=== PATIENT | male | born 1945 | race Two or more races ===

== ENCOUNTER 2016-12-19 08:45 | Outpatient (CLI) | payer MEDICARE, MEDICAID ==
[2016-12-20] MEDS ORDERED: GLIP5TAB13 PO (13:59)
[2016-12-20] MEDS ORDERED: METF10002 PO (13:59)
[2016-12-20] MEDS ORDERED: OXYC-162 PO (13:59)
[2016-12-20] MEDS ORDERED: IBUP-1955 PO (13:59)
[2016-12-20] MEDS ORDERED: METO5TAB2 PO (13:59)
[2016-12-20] MEDS ORDERED: FAMO20TA8 PO (13:59)
[2016-12-20] MEDS ORDERED: BENA40TA2 PO (13:59)
[2016-12-20] MEDS ORDERED: CHLO25TA2 PO (13:59)
[2016-12-20] MEDS ORDERED: AMLO10TA2 PO (13:59)
[2016-12-20] MEDS ORDERED: ATOR40TA PO (13:59)
[2016-12-20] MEDS ORDERED: ASPI81TA2 PO (13:59)
== END 2016-12-19 23:59 | disposition home health service (06) ==
LOC: WOU 08:45
PROVIDERS: ATTEND Podiatrist Foot & Ankle Surgery
DX: E11.621 Type 2 diabetes mellitus with foot ulcer (principal); L97.513 Non-pressure chronic ulcer of other part of right foot with necrosis of muscle; E11.69 Type 2 diabetes mellitus with other specified complication; M86.671 Other chronic osteomyelitis, right ankle and foot; E11.42 Type 2 diabetes mellitus with diabetic polyneuropathy; L60.3 Nail dystrophy; L60.0 Ingrowing nail; B35.1 Tinea unguium; Z87.891 Personal history of nicotine dependence; I10 Essential (primary) hypertension; Z89.421 Acquired absence of other right toe(s); Z79.84 Long term (current) use of oral hypoglycemic drugs
CPT/HCPCS: 11043; 11730; 87070; 87075; A6402; 87186-TC

== ENCOUNTER 2016-12-20 10:20 | Outpatient (CLI) | payer MEDICARE, MEDICAID ==
[2016-12-20] MEDS ORDERED: OXYC-162 PO (13:59)
[2016-12-20] MEDS ORDERED: CHLO25TA2 PO (13:59)
[2016-12-20] MEDS ORDERED: GLIP5TAB13 PO (13:59)
[2016-12-20] MEDS ORDERED: IBUP-1955 PO (13:59)
[2016-12-20] MEDS ORDERED: ATOR40TA PO (13:59)
[2016-12-20] MEDS ORDERED: METO5TAB2 PO (13:59)
[2016-12-20] MEDS ORDERED: AMLO10TA2 PO (13:59)
[2016-12-20] MEDS ORDERED: FAMO20TA8 PO (13:59)
[2016-12-20] MEDS ORDERED: METF10002 PO (13:59)
[2016-12-20] MEDS ORDERED: BENA40TA2 PO (13:59)
[2016-12-20] MEDS ORDERED: ASPI81TA2 PO (13:59)
== END 2016-12-20 23:59 | disposition home health service (06) ==
LOC: WOU 10:20
PROVIDERS: ATTEND Specialist
DX: E11.621 Type 2 diabetes mellitus with foot ulcer (principal); L97.414 Non-pressure chronic ulcer of right heel and midfoot with necrosis of bone; L97.512 Non-pressure chronic ulcer of other part of right foot with fat layer exposed; E11.42 Type 2 diabetes mellitus with diabetic polyneuropathy; E11.69 Type 2 diabetes mellitus with other specified complication; M86.671 Other chronic osteomyelitis, right ankle and foot; E11.649 Type 2 diabetes mellitus with hypoglycemia without coma; Z79.4 Long term (current) use of insulin; I10 Essential (primary) hypertension; Z79.899 Other long term (current) drug therapy; Z87.891 Personal history of nicotine dependence
CPT/HCPCS: 82962-TC; A6402; G0463

== ENCOUNTER 2016-12-20 12:44 | Inpatient (IN) | payer MEDICARE, MEDICAID ==
[~2016-12-20] VITALS: Ht 172.7 cm; Wt 77.1 kg
[2016-12-20] MEDS ORDERED: DEXTROSE 50%-WATER 50 ML DISP.SYRIN ONE (12:48)
[2016-12-20] MEDS ORDERED: DEXTROSE 50%-WATER 50 ML DISP.SYRIN IVP ONE (13:00)
[2016-12-20] MEDS ORDERED: IV D5/0.45 NACL 1,000 ML IV ONE ×2 (13:00→13:09)
[2016-12-20] MEDS ORDERED: OCTREOTIDE 50 MCG/ML AMPUL SQ ONE (13:00)
[2016-12-20] MEDS ORDERED: IV SET PRIMARY PUMP SET 1 EA INFUS.SET MC ONE ×2 (13:09→14:17)
[2016-12-20] MEDS ORDERED: OCTREOTIDE 100 MCG/ML VIAL ONE (13:10)
[2016-12-20 13:16] LABS: BASOPHILS % (AUTO) 0.3 % (0.0-2.0); DIFF TOTAL % 100 %; EOSINOPHILS # (AUTO) 0.2 /CMM (0.0-0.7); EOSINOPHILS % (AUTO) 2.3 % (0.0-6.0); HEMATOCRIT 29 % (39-51); HEMOGLOBIN 9.8 g/dL (13.5-17.5); LYMPHOCYTES # (AUTO) 2.7 /CMM (0.8-4.8); LYMPHOCYTES % (AUTO) 30.3 % (20.0-44.0); MEAN CORPUSCULAR HEMOGLOBIN 29 PG (26.0-33.0); MEAN CORPUSCULAR HGB CONC 34 g/dl (31.0-36.0); MEAN CORPUSCULAR VOLUME 86 fL (80-96); MONOCYTES # (AUTO) 0.5 /CMM (0.1-1.30); MONOCYTES % (AUTO) 5.5 % (2.0-12.0); NEUTROPHILS # (AUTO) 5.6 /CMM (1.8-8.9); NEUTROPHILS % (AUTO) 61.6 % (43.0-81.0); PLATELET COUNT (AUTO) 318 /CMM (150-450); RED BLOOD CELL COUNT(AUTO) 3.39 MIL/uL (4.5-6.0)
[2016-12-20 13:25] LABS: ANION GAP 15 (5-14); CARBON DIOXIDE 24 mmol/L (21-32); CHLORIDE 103 mmol/L (98-107); CREATININE 1.6 mg/dL (0.6-1.3); GLUCOSE 149 mg/dL (74-106); SODIUM SERUM 138 mmol/L (136-145); UREA NITROGEN, BLOOD 46 mg/dL (7-18)
[2016-12-20] MEDS ORDERED: PIPERACILLIN /TAZOBACTAM 3.375 G in IV D5W 50 ML IV ONE (13:30)
[2016-12-20] MEDS ORDERED: VANCOMYCIN 1 GM in IV D5W 250 ML IV SCH (13:30)
[2016-12-20] MEDS ORDERED: SILVER SULFADIAZINE CREAM 25 GM TUBE TP ONE (13:30)
[2016-12-20 13:33] LABS: TROPONIN I < 0.017 ng/mL (0.00-0.056)
[2016-12-20] MEDS ORDERED: ATOR40TA PO (13:59)
[2016-12-20] MEDS ORDERED: ASPI81TA2 PO (13:59)
[2016-12-20] MEDS ORDERED: METF10002 PO (13:59)
[2016-12-20] MEDS ORDERED: GLIP5TAB13 PO (13:59)
[2016-12-20] MEDS ORDERED: IBUP-1955 PO (13:59)
[2016-12-20] MEDS ORDERED: AMLO10TA2 PO (13:59)
[2016-12-20] MEDS ORDERED: BENA40TA2 PO (13:59)
[2016-12-20] MEDS ORDERED: FAMO20TA8 PO (13:59)
[2016-12-20] MEDS ORDERED: CHLO25TA2 PO (13:59)
[2016-12-20] MEDS ORDERED: METO5TAB2 PO (13:59)
[2016-12-20] MEDS ORDERED: OXYC-162 PO (13:59)
[2016-12-20] MEDS ORDERED: ACETAMINOPHEN 325 MG TABLET PO PRN (14:30)
[2016-12-20] MEDS ORDERED: HYDROCODONE/APAP 5/325MG 1 EACH TABLET PO PRN (14:30)
[2016-12-20] MEDS ORDERED: MORPHINE SULFATE INJ 2 MG/ML DISP.SYRIN IV PRN (14:30)
[2016-12-20] MEDS ORDERED: ACETAMINOPHEN 650 MG/20.3 ML UDC NG PRN (14:30)
[2016-12-20] MEDS ORDERED: ONDANSETRON HCL/PF 4 MG/2 ML VIAL IVP PRN ×2 (14:30)
[2016-12-20] MEDS ORDERED: MAG HYDROX/AL HYDROX/SIMETH 30 ML UDC PO PRN (14:30)
[2016-12-20] MEDS ORDERED: Z GUARD REMEDY 2 OZ OINT TP PRN (14:30)
[2016-12-20] MEDS ORDERED: VANCOMYCIN 1 GM in IV D5W 250 ML IV ONE (14:30)
[2016-12-20] MEDS ORDERED: IV NS 0.9% 1,000 ML BAG IV ONE (14:30)
[2016-12-20] MEDS ORDERED: DEXTROSE 10% IN WATER 250 ML BAG IV ONE (14:30)
[2016-12-20 15:20] LABS: IRON, SERUM 42 ug/dl (50-175); PERCENT SATURATION 17 % (14-33); TOTAL IRON BINDING CAPACITY 253 ug/dl (250-450)
[2016-12-20 15:30] VITALS: BP 117/69
[2016-12-20] MEDS ORDERED: METOCLOPRAMIDE HCL 10 MG TABLET PO PRN (15:30)
[2016-12-20 16:00] VITALS: BP 149/72
[2016-12-20] MEDS ORDERED: FEE PK DOSING 1 MIN EA MC ONE (16:24)
[2016-12-20 16:29] LABS: CREATININE 1.5 mg/dL (0.6-1.3); POTASSIUM 4.5 mmol/L (3.5-5.1)
[2016-12-20] MEDS ORDERED: DEXTROSE 50%-WATER 50 ML DISP.SYRIN IV PRN (18:30)
[2016-12-20] MEDS ORDERED: SECONDARY IV SET 1 EA INFUS.SET MC ONE (18:31)
[2016-12-20] MEDS: MEROPENEM 1 G in IV NS 0.9% 100 ML IV SCH (18:36)
[2016-12-20] MEDS: IV D5/ 0.9% NACL 1,000 ML IV PRN (18:36)
[2016-12-20] MEDS: BLOOD SUGAR DIAGNOSTIC 1 EACH STRIP IN SCH ×2 (18:37→22:17)
[2016-12-20 20:00] VITALS: BP 114/62
[2016-12-20 20:50] LABS: KETONES,URINE NEGATIVE (NEGATIVE); LEUKOCYTE ESTERASE ,URINE NEGATIVE (NEGATIVE)
[2016-12-20] MEDS ORDERED: MEROPENEM 1 G in IV NS 0.9% 100 ML IV SCH (21:00)
[2016-12-20 21:08] LABS: ADD UA MICROSCOPIC YES
[2016-12-20 21:11] LABS: ADD URINE CULTURE NO; WBC,URINE 0-2 /HPF (0-3)
[2016-12-20] MEDS ORDERED: MAGNESIUM HYDROXIDE 30 ML UDC PO PRN (22:00)
[2016-12-20] MEDS ORDERED: ZOLPIDEM TARTRATE 5 MG TABLET PO PRN (22:00)
[2016-12-21] VITALS (7 sets, daily range): BP systolic 105–130; BP diastolic 52–130
[2016-12-21] MEDS: MEROPENEM 1 G in IV NS 0.9% 100 ML IV SCH ×2 (03:35→15:46)
[2016-12-21] MEDS: IV D5/ 0.9% NACL 1,000 ML IV PRN ×2 (03:35→21:12)
[2016-12-21] MEDS: BLOOD SUGAR DIAGNOSTIC 1 EACH STRIP IN SCH ×5 (05:52→22:00)
[2016-12-21 07:06] LABS: BASOPHILS # (AUTO) 0.1 /CMM (0.0-0.2); BASOPHILS % (AUTO) 0.8 % (0.0-2.0); DIFF TOTAL % 100 %; EOSINOPHILS # (AUTO) 0.2 /CMM (0.0-0.7); EOSINOPHILS % (AUTO) 2.8 % (0.0-6.0); HEMATOCRIT 30 % (39-51); HEMOGLOBIN 9.9 g/dL (13.5-17.5); LYMPHOCYTES # (AUTO) 0.3 /CMM (0.8-4.8); LYMPHOCYTES % (AUTO) 4.2 % (20.0-44.0); MEAN CORPUSCULAR HEMOGLOBIN 29 PG (26.0-33.0); MEAN CORPUSCULAR HGB CONC 33 g/dl (31.0-36.0); MEAN CORPUSCULAR VOLUME 87 fL (80-96); MONOCYTES # (AUTO) 0.3 /CMM (0.1-1.30); MONOCYTES % (AUTO) 4.4 % (2.0-12.0); NEUTROPHILS # (AUTO) 6.8 /CMM (1.8-8.9); NEUTROPHILS % (AUTO) 87.8 % (43.0-81.0); PLATELET COUNT (AUTO) 277 /CMM (150-450); RED BLOOD CELL COUNT(AUTO) 3.43 MIL/uL (4.5-6.0); WHITE BLOOD COUNT (AUTO) 7.8 K/uL (4.3-11.0)
[2016-12-21 07:23] LABS: INR 1.11 (0.87-1.13)
[2016-12-21 07:27] LABS: ALBUMIN 3.2 g/dL (3.4-5.0); BILIRUBIN,TOTAL 0.4 mg/dL (0.2-1.0); CALCIUM, SERUM 8.6 mg/dL (8.5-10.1); CREATININE 1.2 mg/dL (0.6-1.3); POTASSIUM 4.4 mmol/L (3.5-5.1); TOTAL PROTEIN, SERUM 6.9 g/dL (6.4-8.2)
[2016-12-21] MEDS ORDERED: PANTOPRAZOLE 40 MG TABLET.DR PO SCH (07:30)
[2016-12-21 07:31] LABS: THYROID STIMULATING HORMONE 0.624 uIU/mL (0.358-3.74)
[2016-12-21] MEDS: PANTOPRAZOLE 40 MG VIAL IV SCH (08:25)
[2016-12-21] MEDS: ASPIRIN 81 MG TAB.CHEW PO SCH (08:25)
[2016-12-21] MEDS: ATORVASTATIN 40 MG TABLET PO SCH (08:28)
[2016-12-21] MEDS: AMLODIPINE BESYLATE 10 MG TABLET PO SCH (08:29)
[2016-12-21] MEDS: BENAZEPRIL HCL 20 MG TABLET PO SCH (08:29)
[2016-12-21] MEDS ORDERED: VANCOMYCIN 1 GM in IV D5W 250 ML IV SCH (09:00)
[2016-12-21] MEDS ORDERED: SECONDARY IV SET 1 EA INFUS.SET MC ONE (09:25)
[2016-12-21] MEDS ORDERED: DEXTROSE 50%-WATER 50 ML DISP.SYRIN IV PRN (11:00)
[2016-12-21] MEDS: SILVER SULFADIAZINE CREAM 25 GM TUBE TP SCH (12:35)
[2016-12-21] MEDS: INSULIN REGULAR, HUMAN 100 UNIT/ML 3 ML VIAL SQ PRN ×2 (14:07→21:40)
[2016-12-21] MEDS: VANCOMYCIN 0.75 GM in IV D5W 250 ML IV SCH (21:12)
[2016-12-22] MEDS: MEROPENEM 1 G in IV NS 0.9% 100 ML IV SCH ×2 (03:59→15:44)
[2016-12-22] MEDS: INSULIN REGULAR, HUMAN 100 UNIT/ML 3 ML VIAL SQ PRN ×4 (06:36→21:52)
[2016-12-22] MEDS: BLOOD SUGAR DIAGNOSTIC 1 EACH STRIP IN SCH ×4 (07:30→22:09)
[2016-12-22 07:40] LABS: BASOPHILS # (AUTO) 0.1 /CMM (0.0-0.2); BASOPHILS % (AUTO) 1.8 % (0.0-2.0); DIFF TOTAL % 100 %; EOSINOPHILS # (AUTO) 0.4 /CMM (0.0-0.7); EOSINOPHILS % (AUTO) 7.3 % (0.0-6.0); HEMATOCRIT 29 % (39-51); HEMOGLOBIN 9.6 g/dL (13.5-17.5); LYMPHOCYTES # (AUTO) 1.5 /CMM (0.8-4.8); LYMPHOCYTES % (AUTO) 28.6 % (20.0-44.0); MEAN CORPUSCULAR HEMOGLOBIN 29 PG (26.0-33.0); MEAN CORPUSCULAR HGB CONC 34 g/dl (31.0-36.0); MEAN CORPUSCULAR VOLUME 86 fL (80-96); MONOCYTES # (AUTO) 0.3 /CMM (0.1-1.30); NEUTROPHILS # (AUTO) 2.9 /CMM (1.8-8.9); NEUTROPHILS % (AUTO) 56.3 % (43.0-81.0); PLATELET COUNT (AUTO) 268 /CMM (150-450); RED BLOOD CELL COUNT(AUTO) 3.33 MIL/uL (4.5-6.0); WHITE BLOOD COUNT (AUTO) 5.2 K/uL (4.3-11.0)
[2016-12-22 07:54] LABS: CALCIUM, SERUM 8.3 mg/dL (8.5-10.1); CREATININE 1.1 mg/dL (0.6-1.3); PHOSPHORUS 3.4 mg/dL (2.5-4.9); POTASSIUM 4.2 mmol/L (3.5-5.1)
[2016-12-22 08:00] VITALS: BP 126/60
[2016-12-22] MEDS: PANTOPRAZOLE 40 MG VIAL IV SCH (08:25)
[2016-12-22] MEDS: ASPIRIN 81 MG TAB.CHEW PO SCH (08:25)
[2016-12-22] MEDS: ATORVASTATIN 40 MG TABLET PO SCH (08:26)
[2016-12-22] MEDS: AMLODIPINE BESYLATE 10 MG TABLET PO SCH (08:26)
[2016-12-22] MEDS: BENAZEPRIL HCL 20 MG TABLET PO SCH (08:26)
[2016-12-22] MEDS: VANCOMYCIN 0.75 GM in IV D5W 250 ML IV SCH ×2 (08:39→21:45)
[2016-12-22] MEDS: SILVER SULFADIAZINE CREAM 25 GM TUBE TP SCH (08:39)
[2016-12-22] MEDS ORDERED: SECONDARY IV SET 1 EA INFUS.SET MC ONE ×2 (08:40→19:11)
[2016-12-22] MEDS: Magnesium 1GM/D5W 100ML PREMIX 100 ML IV SCH ×2 (12:36→13:40)
[2016-12-22] MEDS ORDERED: Magnesium 1GM/D5W 100ML PREMIX 100 ML IV SCH (13:30)
[2016-12-22 13:45] LABS: INR 1.07 (0.87-1.13); PROTHROMBIN TIME 11.6 SECS (9.5-12.7)
[2016-12-22] MEDS: IV D5/ 0.9% NACL 1,000 ML IV PRN (14:59)
[2016-12-22 16:00] VITALS: BP 123/59
[2016-12-22 19:00] VITALS: BP 111/52
[2016-12-22] MEDS: CEFTRIAXONE 1 G in IV D5W 50 ML IV SCH (19:13)
[2016-12-23] MEDS: IV D5/ 0.9% NACL 1,000 ML IV PRN ×2 (04:21→18:51)
[2016-12-23] MEDS: BLOOD SUGAR DIAGNOSTIC 1 EACH STRIP IN SCH ×4 (05:25→21:31)
[2016-12-23] MEDS: INSULIN REGULAR, HUMAN 100 UNIT/ML 3 ML VIAL SQ PRN ×4 (06:29→21:39)
[2016-12-23 06:32] LABS: BASOPHILS # (AUTO) 0.1 /CMM (0.0-0.2); BASOPHILS % (AUTO) 1.7 % (0.0-2.0); DIFF TOTAL % 100 %; EOSINOPHILS # (AUTO) 0.3 /CMM (0.0-0.7); EOSINOPHILS % (AUTO) 5.8 % (0.0-6.0); HEMATOCRIT 28 % (39-51); HEMOGLOBIN 9.4 g/dL (13.5-17.5); LYMPHOCYTES # (AUTO) 1.7 /CMM (0.8-4.8); LYMPHOCYTES % (AUTO) 34.7 % (20.0-44.0); MEAN CORPUSCULAR HEMOGLOBIN 29 PG (26.0-33.0); MEAN CORPUSCULAR HGB CONC 34 g/dl (31.0-36.0); MEAN CORPUSCULAR VOLUME 85 fL (80-96); MONOCYTES # (AUTO) 0.3 /CMM (0.1-1.30); MONOCYTES % (AUTO) 6.5 % (2.0-12.0); NEUTROPHILS # (AUTO) 2.5 /CMM (1.8-8.9); NEUTROPHILS % (AUTO) 51.3 % (43.0-81.0); PLATELET COUNT (AUTO) 277 /CMM (150-450); RED BLOOD CELL COUNT(AUTO) 3.29 MIL/uL (4.5-6.0); WHITE BLOOD COUNT (AUTO) 4.9 K/uL (4.3-11.0)
[2016-12-23 06:59] LABS: CALCIUM, SERUM 8.3 mg/dL (8.5-10.1); POTASSIUM 4.4 mmol/L (3.5-5.1)
[2016-12-23 08:00] VITALS: BP 125/64
[2016-12-23] MEDS: VANCOMYCIN 0.75 GM in IV D5W 250 ML IV SCH ×2 (09:11→21:31)
[2016-12-23] MEDS: AMLODIPINE BESYLATE 10 MG TABLET PO SCH (09:11)
[2016-12-23] MEDS: ASPIRIN 81 MG TAB.CHEW PO SCH (09:12)
[2016-12-23] MEDS: ATORVASTATIN 40 MG TABLET PO SCH (09:12)
[2016-12-23] MEDS: BENAZEPRIL HCL 20 MG TABLET PO SCH (09:12)
[2016-12-23] MEDS: PANTOPRAZOLE 40 MG VIAL IV SCH (09:13)
[2016-12-23] MEDS: SILVER SULFADIAZINE CREAM 25 GM TUBE TP SCH (09:13)
[2016-12-23] MEDS: ENOXAPARIN SODIUM 40 MG/0.4 ML DISP.SYRIN SQ SCH (11:23)
[2016-12-23 16:00] VITALS: BP 123/66
[2016-12-23] MEDS: LACTOBACILLUS RHAMNOSUS GG 1 EACH CAP.SPRINK PO SCH (18:01)
[2016-12-23] MEDS: CEFTRIAXONE 1 G in IV D5W 50 ML IV SCH (18:51)
[2016-12-23 20:00] VITALS: BP 110/62
[2016-12-24 07:03] LABS: CALCIUM, SERUM 8.4 mg/dL (8.5-10.1); POTASSIUM 4.2 mmol/L (3.5-5.1)
[2016-12-24] MEDS: BLOOD SUGAR DIAGNOSTIC 1 EACH STRIP IN SCH ×4 (07:30→21:36)
[2016-12-24] MEDS: INSULIN REGULAR, HUMAN 100 UNIT/ML 3 ML VIAL SQ PRN ×3 (07:42→21:39)
[2016-12-24 08:00] VITALS: BP 133/70
[2016-12-24] MEDS: IV D5/ 0.9% NACL 1,000 ML IV PRN (08:16)
[2016-12-24] MEDS: PANTOPRAZOLE 40 MG VIAL IV SCH (08:16)
[2016-12-24] MEDS: ASPIRIN 81 MG TAB.CHEW PO SCH (08:16)
[2016-12-24] MEDS: ATORVASTATIN 40 MG TABLET PO SCH (08:16)
[2016-12-24] MEDS: LACTOBACILLUS RHAMNOSUS GG 1 EACH CAP.SPRINK PO SCH ×2 (08:16→16:21)
[2016-12-24] MEDS: BENAZEPRIL HCL 20 MG TABLET PO SCH (08:17)
[2016-12-24] MEDS: AMLODIPINE BESYLATE 10 MG TABLET PO SCH (08:17)
[2016-12-24] MEDS: SILVER SULFADIAZINE CREAM 25 GM TUBE TP SCH (08:23)
[2016-12-24] MEDS: VANCOMYCIN 0.75 GM in IV D5W 250 ML IV SCH ×2 (08:51→21:31)
[2016-12-24] MEDS: ENOXAPARIN SODIUM 40 MG/0.4 ML DISP.SYRIN SQ SCH (10:47)
[2016-12-24] MEDS ORDERED: IV NS 0.9% 250 ML IV ONE (14:35)
[2016-12-24 16:00] VITALS: BP 117/64
[2016-12-24] MEDS ORDERED: IV SET PRIMARY PUMP SET 1 EA INFUS.SET MC ONE (17:02)
[2016-12-24] MEDS ORDERED: SECONDARY IV SET 1 EA INFUS.SET MC ONE ×2 (17:03→21:41)
[2016-12-24] MEDS: CEFTRIAXONE 1 G in IV D5W 50 ML IV SCH (18:09)
[2016-12-24 20:00] VITALS: BP 119/64
[2016-12-25] MEDS: BLOOD SUGAR DIAGNOSTIC 1 EACH STRIP IN SCH ×3 (06:29→17:00)
[2016-12-25] MEDS: INSULIN REGULAR, HUMAN 100 UNIT/ML 3 ML VIAL SQ PRN ×3 (06:30→17:03)
[2016-12-25 07:00] LABS: CALCIUM, SERUM 8.7 mg/dL (8.5-10.1); POTASSIUM 4.1 mmol/L (3.5-5.1)
[2016-12-25 08:00] VITALS: BP 128/65
[2016-12-25] MEDS: PANTOPRAZOLE 40 MG VIAL IV SCH (08:13)
[2016-12-25] MEDS: VANCOMYCIN 0.75 GM in IV D5W 250 ML IV SCH (08:14)
[2016-12-25] MEDS: ASPIRIN 81 MG TAB.CHEW PO SCH (08:41)
[2016-12-25] MEDS: LACTOBACILLUS RHAMNOSUS GG 1 EACH CAP.SPRINK PO SCH ×2 (08:41→17:02)
[2016-12-25] MEDS: AMLODIPINE BESYLATE 10 MG TABLET PO SCH (08:41)
[2016-12-25] MEDS: ATORVASTATIN 40 MG TABLET PO SCH (08:41)
[2016-12-25] MEDS: SILVER SULFADIAZINE CREAM 25 GM TUBE TP SCH (08:47)
[2016-12-25] MEDS: BENAZEPRIL HCL 20 MG TABLET PO SCH (08:47)
[2016-12-25] MEDS: ENOXAPARIN SODIUM 40 MG/0.4 ML DISP.SYRIN SQ SCH (10:17)
[2016-12-25 16:00] VITALS: BP 127/59
== END 2016-12-25 18:18 | disposition home or self-care (01) | DRG 853 ==
LOC: ER 12:46 → TELE 15:02 → UNDOADMIN 15:02 → WOUND3 15:02 → TELE 20:33 → MED 12-21 11:49
PROVIDERS: ADMIT Internal Medicine; ATTEND Internal Medicine
PROC: 0JBQ0ZZ Excision of Right Foot Subcutaneous Tissue and Fascia, Open Approach (ICD-10-PCS; principal; 2016-12-24)
DX: A41.9 Sepsis, unspecified organism (principal); N17.0 Acute kidney failure with tubular necrosis; M86.8X6 Other osteomyelitis, lower leg; L03.90 Cellulitis, unspecified; E11.649 Type 2 diabetes mellitus with hypoglycemia without coma; E11.22 Type 2 diabetes mellitus with diabetic chronic kidney disease; I12.9 Hypertensive chronic kidney disease with stage 1 through stage 4 chronic kidney disease, or unspecified chronic kidney disease; N18.3 Chronic kidney disease, stage 3 (moderate); E11.621 Type 2 diabetes mellitus with foot ulcer; L97.519 Non-pressure chronic ulcer of other part of right foot with unspecified severity; T38.3X5A Adverse effect of insulin and oral hypoglycemic [antidiabetic] drugs, initial encounter; Y92.009 Unspecified place in unspecified non-institutional (private) residence as the place of occurrence of the external cause; E11.42 Type 2 diabetes mellitus with diabetic polyneuropathy; E11.51 Type 2 diabetes mellitus with diabetic peripheral angiopathy without gangrene; E11.69 Type 2 diabetes mellitus with other specified complication; Z79.84 Long term (current) use of oral hypoglycemic drugs; Z79.82 Long term (current) use of aspirin; Z79.899 Other long term (current) drug therapy; E78.5 Hyperlipidemia, unspecified; E11.65 Type 2 diabetes mellitus with hyperglycemia; D63.8 Anemia in other chronic diseases classified elsewhere; Z89.429 Acquired absence of other toe(s), unspecified side; R65.20 Severe sepsis without septic shock
CPT/HCPCS: 36415; 71010-TC; 80048-TC; 80053-TC; 80061-TC; 80202-TC; 81000-TC; 82272-TC; 82746; 82962-TC; 83540-TC; 83605-TC; 83735-TC; 84100-TC; 84443-TC; 84484-TC; 85025-TC; 85610-TC; 85730-TC; 87040-TC; 87070-TC; 87081-TC; 87086-TC; 87186-TC; 93307-TC; A4606; A6402; C9113; J0696; J1650; J1815; J2185; J2354; J2543; J3370; J3475; J3490; J7030; J7042; J7050; J7060; Z7610

== ENCOUNTER 2016-12-27 12:15 | Outpatient (CLI) | payer MEDICARE, MEDICAID ==
[~2016-12-27 12:15] MED LIST: AMLO10TA2 PO; ASPI81TA2 PO; ATOR40TA PO; BENA40TA2 PO; CHLO25TA2 PO; FAMO20TA8 PO; GLIP5TAB13 PO; IBUP-1955 PO; METF10002 PO; METO5TAB2 PO; OXYC-162 PO
== END 2016-12-27 23:59 | disposition home health service (06) ==
LOC: WOU 12:15
PROVIDERS: ATTEND Podiatrist Foot & Ankle Surgery
DX: L97.414 Non-pressure chronic ulcer of right heel and midfoot with necrosis of bone (principal); L97.514 Non-pressure chronic ulcer of other part of right foot with necrosis of bone; L08.9 Local infection of the skin and subcutaneous tissue, unspecified; E11.69 Type 2 diabetes mellitus with other specified complication; M86.671 Other chronic osteomyelitis, right ankle and foot; E11.42 Type 2 diabetes mellitus with diabetic polyneuropathy; Z89.421 Acquired absence of other right toe(s); I10 Essential (primary) hypertension; Z79.84 Long term (current) use of oral hypoglycemic drugs; Z79.899 Other long term (current) drug therapy
CPT/HCPCS: 11043; A6402

== ENCOUNTER 2017-01-02 09:00 | Outpatient (CLI) | payer MEDICARE, MEDICAID | END 2017-01-02 23:59 | disposition home or self-care (01) | LOC: WOU 09:00 | PROVIDERS: ATTEND Podiatrist Foot & Ankle Surgery | DX: E11.621 Type 2 diabetes mellitus with foot ulcer (principal) | CPT/HCPCS: 82962-TC; 93925-TC ==

== ENCOUNTER 2017-01-03 09:21 | Outpatient (CLI) | payer MEDICARE, MEDICAID ==
--- NOTE | 2017-01-05 08:25 | NUR ---
INFECTION CONTROL COMPLAIN RECEIVED FROM [facility] THAT PATIENT HAS BED BUGS. EVS NOTIFIED [employer]IS[employer]. [employer] ANISHA WILL NOTIFY PUBLIC HEALTH TO FOLLOW UP WITH THIS CASE. HOME ADDRESS AND PHONE NUMBER OF PATIENT PROVIDED TO CASE MANAGEMENT.
== END 2017-01-03 23:59 | disposition home health service (06) ==
LOC: WOU 09:21
PROVIDERS: ATTEND Podiatrist Foot & Ankle Surgery
DX: E11.621 Type 2 diabetes mellitus with foot ulcer (principal); L97.514 Non-pressure chronic ulcer of other part of right foot with necrosis of bone; L97.414 Non-pressure chronic ulcer of right heel and midfoot with necrosis of bone; E11.69 Type 2 diabetes mellitus with other specified complication; M86.671 Other chronic osteomyelitis, right ankle and foot; R60.0 Localized edema; E11.65 Type 2 diabetes mellitus with hyperglycemia; E11.42 Type 2 diabetes mellitus with diabetic polyneuropathy; Z89.421 Acquired absence of other right toe(s); H92.09 Otalgia, unspecified ear
CPT/HCPCS: 11042; 82962-TC; A6402

== ENCOUNTER 2017-01-10 08:20 | Outpatient (CLI) | payer MEDICARE, MEDICAID | END 2017-01-10 23:59 | disposition home health service (06) | LOC: WOU 08:20 | PROVIDERS: ATTEND Podiatrist Foot & Ankle Surgery | DX: E11.65 Type 2 diabetes mellitus with hyperglycemia (principal); E11.621 Type 2 diabetes mellitus with foot ulcer; L97.513 Non-pressure chronic ulcer of other part of right foot with necrosis of muscle; E11.40 Type 2 diabetes mellitus with diabetic neuropathy, unspecified; E11.69 Type 2 diabetes mellitus with other specified complication; M86.671 Other chronic osteomyelitis, right ankle and foot; H92.09 Otalgia, unspecified ear; R60.0 Localized edema; Z79.84 Long term (current) use of oral hypoglycemic drugs | CPT/HCPCS: 11043; A6402; A6407 ==

== ENCOUNTER 2017-01-23 09:15 | Outpatient (CLI) | payer MEDICARE, MEDICAID | END 2017-01-23 23:59 | disposition home health service (06) | LOC: WOU 09:15 | PROVIDERS: ATTEND Podiatrist Foot & Ankle Surgery | DX: E11.621 Type 2 diabetes mellitus with foot ulcer (principal); L97.413 Non-pressure chronic ulcer of right heel and midfoot with necrosis of muscle; E11.65 Type 2 diabetes mellitus with hyperglycemia; E11.40 Type 2 diabetes mellitus with diabetic neuropathy, unspecified; E11.69 Type 2 diabetes mellitus with other specified complication; M86.671 Other chronic osteomyelitis, right ankle and foot; R60.0 Localized edema; L03.115 Cellulitis of right lower limb; H92.09 Otalgia, unspecified ear; Z79.84 Long term (current) use of oral hypoglycemic drugs; Z79.899 Other long term (current) drug therapy | CPT/HCPCS: 11043; A6402; A6407 ==

== ENCOUNTER 2017-02-06 08:20 | Outpatient (CLI) | payer MEDICARE, MEDICAID | END 2017-02-06 23:59 | disposition home health service (06) | LOC: WOU 08:20 | PROVIDERS: ATTEND Podiatrist Foot & Ankle Surgery | DX: E11.621 Type 2 diabetes mellitus with foot ulcer (principal); L97.512 Non-pressure chronic ulcer of other part of right foot with fat layer exposed; Z79.84 Long term (current) use of oral hypoglycemic drugs; E11.42 Type 2 diabetes mellitus with diabetic polyneuropathy; I10 Essential (primary) hypertension; Z79.899 Other long term (current) drug therapy; Z89.421 Acquired absence of other right toe(s); Z87.891 Personal history of nicotine dependence; B35.1 Tinea unguium; E11.69 Type 2 diabetes mellitus with other specified complication; M86.9 Osteomyelitis, unspecified | CPT/HCPCS: 11042; A6402; A6407 ==

== ENCOUNTER 2017-02-13 08:40 | Outpatient (CLI) | payer MEDICARE, MEDICAID | END 2017-02-13 23:59 | disposition home health service (06) | LOC: WOU 08:40 | PROVIDERS: ATTEND Podiatrist Foot & Ankle Surgery | DX: E11.621 Type 2 diabetes mellitus with foot ulcer (principal); L97.412 Non-pressure chronic ulcer of right heel and midfoot with fat layer exposed; E11.42 Type 2 diabetes mellitus with diabetic polyneuropathy; E11.69 Type 2 diabetes mellitus with other specified complication; M86.671 Other chronic osteomyelitis, right ankle and foot; Z87.891 Personal history of nicotine dependence; I10 Essential (primary) hypertension; Z79.899 Other long term (current) drug therapy; Z79.84 Long term (current) use of oral hypoglycemic drugs | CPT/HCPCS: 11042; A6402 ==

== ENCOUNTER 2017-02-20 08:20 | Outpatient (CLI) | payer MEDICARE, MEDICAID | END 2017-02-20 23:59 | disposition home health service (06) | LOC: WOU 08:20 | PROVIDERS: ATTEND Podiatrist Foot & Ankle Surgery | DX: E11.621 Type 2 diabetes mellitus with foot ulcer (principal); L97.511 Non-pressure chronic ulcer of other part of right foot limited to breakdown of skin; E11.69 Type 2 diabetes mellitus with other specified complication; M86.671 Other chronic osteomyelitis, right ankle and foot; E11.40 Type 2 diabetes mellitus with diabetic neuropathy, unspecified; Z79.84 Long term (current) use of oral hypoglycemic drugs; Z89.421 Acquired absence of other right toe(s) | CPT/HCPCS: 11042; A6402 ==

== ENCOUNTER 2017-02-27 08:36 | Outpatient (CLI) | payer MEDICARE, MEDICAID | END 2017-02-27 23:59 | disposition home health service (06) | LOC: WOU 08:36 | PROVIDERS: ATTEND Podiatrist Foot & Ankle Surgery | DX: E11.621 Type 2 diabetes mellitus with foot ulcer (principal); L97.411 Non-pressure chronic ulcer of right heel and midfoot limited to breakdown of skin; I10 Essential (primary) hypertension; I87.2 Venous insufficiency (chronic) (peripheral); E11.42 Type 2 diabetes mellitus with diabetic polyneuropathy; Z89.421 Acquired absence of other right toe(s); E11.69 Type 2 diabetes mellitus with other specified complication; M86.671 Other chronic osteomyelitis, right ankle and foot; Z87.891 Personal history of nicotine dependence; Z79.84 Long term (current) use of oral hypoglycemic drugs; Z79.82 Long term (current) use of aspirin | CPT/HCPCS: 11042; A6402 ==

== ENCOUNTER 2017-03-06 08:10 | Outpatient (CLI) | payer MEDICARE, MEDICAID | END 2017-03-06 23:59 | disposition home health service (06) | LOC: WOU 08:10 | PROVIDERS: ATTEND Podiatrist Foot & Ankle Surgery | DX: E11.621 Type 2 diabetes mellitus with foot ulcer (principal); L97.411 Non-pressure chronic ulcer of right heel and midfoot limited to breakdown of skin; E11.40 Type 2 diabetes mellitus with diabetic neuropathy, unspecified; Z89.421 Acquired absence of other right toe(s); Z79.84 Long term (current) use of oral hypoglycemic drugs | CPT/HCPCS: 11042; A6402 ==

== ENCOUNTER 2017-03-13 08:00 | Outpatient (CLI) | payer MEDICARE, MEDICAID | END 2017-03-13 23:59 | disposition home health service (06) | LOC: WOU 08:00 | PROVIDERS: ATTEND Podiatrist Foot & Ankle Surgery | DX: E11.621 Type 2 diabetes mellitus with foot ulcer (principal); L97.411 Non-pressure chronic ulcer of right heel and midfoot limited to breakdown of skin; E11.40 Type 2 diabetes mellitus with diabetic neuropathy, unspecified; I10 Essential (primary) hypertension; Z89.421 Acquired absence of other right toe(s) | CPT/HCPCS: 11042; A6402 ==

== ENCOUNTER 2017-03-20 09:00 | Outpatient (CLI) | payer MEDICARE, MEDICAID | END 2017-03-20 23:59 | disposition home health service (06) | LOC: WOU 09:00 | PROVIDERS: ATTEND Podiatrist Foot & Ankle Surgery | DX: E11.621 Type 2 diabetes mellitus with foot ulcer (principal); L97.512 Non-pressure chronic ulcer of other part of right foot with fat layer exposed; E11.42 Type 2 diabetes mellitus with diabetic polyneuropathy; I10 Essential (primary) hypertension; Z79.899 Other long term (current) drug therapy; Z89.421 Acquired absence of other right toe(s) | CPT/HCPCS: 11042; A6402 ==

== ENCOUNTER 2017-03-27 08:45 | Outpatient (CLI) | payer MEDICARE, MEDICAID | END 2017-03-27 23:59 | disposition home health service (06) | LOC: WOU 08:45 | PROVIDERS: ATTEND Podiatrist Foot & Ankle Surgery | DX: E11.621 Type 2 diabetes mellitus with foot ulcer (principal); L97.512 Non-pressure chronic ulcer of other part of right foot with fat layer exposed; E11.42 Type 2 diabetes mellitus with diabetic polyneuropathy; I10 Essential (primary) hypertension; Z79.899 Other long term (current) drug therapy; Z89.421 Acquired absence of other right toe(s); Z79.82 Long term (current) use of aspirin; Z79.84 Long term (current) use of oral hypoglycemic drugs | CPT/HCPCS: 11042; A6402 ==

== ENCOUNTER 2017-04-10 08:37 | Outpatient (CLI) | payer MEDICARE, MEDICAID | END 2017-04-10 23:59 | disposition home health service (06) | LOC: WOU 08:37 | PROVIDERS: ATTEND Podiatrist Foot & Ankle Surgery | DX: E11.621 Type 2 diabetes mellitus with foot ulcer (principal); L97.512 Non-pressure chronic ulcer of other part of right foot with fat layer exposed; E11.42 Type 2 diabetes mellitus with diabetic polyneuropathy; Z89.421 Acquired absence of other right toe(s); I10 Essential (primary) hypertension; Z87.891 Personal history of nicotine dependence | CPT/HCPCS: 11042; A6402; Z7610 ==

== ENCOUNTER 2017-04-18 08:34 | Outpatient (CLI) | payer MEDICARE, MEDICAID | END 2017-04-18 23:59 | disposition home health service (06) | LOC: WOU 08:34 | PROVIDERS: ATTEND Podiatrist Foot & Ankle Surgery | DX: E11.621 Type 2 diabetes mellitus with foot ulcer (principal); L97.512 Non-pressure chronic ulcer of other part of right foot with fat layer exposed; E11.42 Type 2 diabetes mellitus with diabetic polyneuropathy; I10 Essential (primary) hypertension; Z87.891 Personal history of nicotine dependence; Z89.421 Acquired absence of other right toe(s) | CPT/HCPCS: 11042; A6402 ==

== ENCOUNTER 2017-04-19 08:38 | Outpatient (CLI) | payer MEDICARE, MEDICAID ==
[2017-04-19 09:03] LABS: BASOPHILS % (AUTO) 0.8 % (0.0-2.0); EOSINOPHILS # (AUTO) 0.1 /CMM (0.0-0.7); HEMATOCRIT 30 % (39-51); HEMOGLOBIN 9.9 g/dL (13.5-17.5); LYMPHOCYTES # (AUTO) 1.6 /CMM (0.8-4.8); LYMPHOCYTES % (AUTO) 34.4 % (20.0-44.0); MEAN CORPUSCULAR HEMOGLOBIN 29 PG (26.0-33.0); MEAN CORPUSCULAR HGB CONC 34 g/dl (31.0-36.0); MEAN CORPUSCULAR VOLUME 87 fL (80-96); MONOCYTES # (AUTO) 0.4 /CMM (0.1-1.30); MONOCYTES % (AUTO) 7.7 % (2.0-12.0); NEUTROPHILS # (AUTO) 2.5 /CMM (1.8-8.9); NEUTROPHILS % (AUTO) 54.1 % (43.0-81.0); PLATELET COUNT (AUTO) 204 /CMM (150-450); RDW COEFFICIENT OF VARIATION 13.8 (11.5-15.0); RED BLOOD CELL COUNT(AUTO) 3.39 MIL/uL (4.5-6.0); WHITE BLOOD COUNT (AUTO) 4.6 K/uL (4.3-11.0)
[2017-04-19 09:10] LABS: CALCIUM, SERUM 8.8 mg/dL (8.5-10.1); CARBON DIOXIDE 32 mmol/L (21-32); CHLORIDE 103 mmol/L (98-107); CREATININE 1.2 mg/dL (0.6-1.3); GLUCOSE 278 mg/dL (74-106); POTASSIUM 4.8 mmol/L (3.5-5.1); SODIUM SERUM 139 mmol/L (136-145); UREA NITROGEN, BLOOD 31 mg/dL (7-18)
[2017-04-19 09:32] LABS: INR 1.01 (0.87-1.13); PROTHROMBIN TIME 10.8 SECS (9.5-12.7)
== END 2017-04-19 23:59 | disposition home or self-care (01) ==
LOC: LAB 08:38
PROVIDERS: ATTEND Podiatrist Foot & Ankle Surgery
DX: Z01.818 Encounter for other preprocedural examination (principal); E11.621 Type 2 diabetes mellitus with foot ulcer; L97.519 Non-pressure chronic ulcer of other part of right foot with unspecified severity; I70.0 Atherosclerosis of aorta; J98.11 Atelectasis; J98.4 Other disorders of lung
CPT/HCPCS: 36415; 71010-TC; 80048-TC; 85025-TC; 85730-TC

== ENCOUNTER 2017-04-24 08:30 | Outpatient (CLI) | payer MEDICARE, MEDICAID | END 2017-04-24 23:59 | disposition home health service (06) | LOC: WOU 08:30 | PROVIDERS: ATTEND Podiatrist Foot & Ankle Surgery | DX: E11.621 Type 2 diabetes mellitus with foot ulcer (principal); L97.512 Non-pressure chronic ulcer of other part of right foot with fat layer exposed; E11.42 Type 2 diabetes mellitus with diabetic polyneuropathy; Z89.421 Acquired absence of other right toe(s); Z79.84 Long term (current) use of oral hypoglycemic drugs; Z79.82 Long term (current) use of aspirin | CPT/HCPCS: 11042; 82962-TC; A6402 ==

== ENCOUNTER 2017-05-01 08:25 | Outpatient (CLI) | payer MEDICARE, MEDICAID | END 2017-05-01 23:59 | disposition home or self-care (01) | LOC: WOU 08:25 | PROVIDERS: ATTEND Podiatrist Foot & Ankle Surgery | DX: E11.621 Type 2 diabetes mellitus with foot ulcer (principal); L97.411 Non-pressure chronic ulcer of right heel and midfoot limited to breakdown of skin; L03.115 Cellulitis of right lower limb; R60.0 Localized edema; E11.42 Type 2 diabetes mellitus with diabetic polyneuropathy | CPT/HCPCS: 11042; A6402 ==

== ENCOUNTER 2017-05-02 10:30 | Outpatient (CLI) | payer MEDICARE, MEDICAID | END 2017-05-02 23:59 | disposition home or self-care (01) | LOC: MRI 10:30 | PROVIDERS: ATTEND Podiatrist Foot & Ankle Surgery | DX: M86.8X7 Other osteomyelitis, ankle and foot (principal); L97.419 Non-pressure chronic ulcer of right heel and midfoot with unspecified severity; M19.071 Primary osteoarthritis, right ankle and foot; M79.89 Other specified soft tissue disorders; M25.474 Effusion, right foot; Z89.021 Acquired absence of right finger(s) | CPT/HCPCS: 73718-TC ==

== ENCOUNTER 2017-05-08 08:00 | Outpatient (CLI) | payer MEDICARE, MEDICAID | END 2017-05-08 23:59 | disposition home health service (06) | LOC: WOU 08:00 | PROVIDERS: ATTEND Podiatrist Foot & Ankle Surgery | DX: E11.621 Type 2 diabetes mellitus with foot ulcer (principal); L97.512 Non-pressure chronic ulcer of other part of right foot with fat layer exposed; E11.42 Type 2 diabetes mellitus with diabetic polyneuropathy; E11.69 Type 2 diabetes mellitus with other specified complication; M86.671 Other chronic osteomyelitis, right ankle and foot; Z89.429 Acquired absence of other toe(s), unspecified side | CPT/HCPCS: 11042; 82962; A6402 ==

== ENCOUNTER → 2017-05-15 | Outpatient (CLI) | payer MEDICARE, MEDICAID | END | disposition home or self-care (01) | LOC: WOU 08:00 | PROVIDERS: ATTEND Podiatrist Foot & Ankle Surgery | DX: E11.621 Type 2 diabetes mellitus with foot ulcer (principal); L97.411 Non-pressure chronic ulcer of right heel and midfoot limited to breakdown of skin; E11.42 Type 2 diabetes mellitus with diabetic polyneuropathy; L03.115 Cellulitis of right lower limb; E11.69 Type 2 diabetes mellitus with other specified complication; M86.8X7 Other osteomyelitis, ankle and foot; R60.0 Localized edema; Z89.421 Acquired absence of other right toe(s); Z79.84 Long term (current) use of oral hypoglycemic drugs | CPT/HCPCS: 11042; A6402 ==

== ENCOUNTER 2017-05-22 08:00 | Outpatient (CLI) | payer MEDICARE, MEDICAID | END 2017-05-22 23:59 | disposition home health service (06) | LOC: WOU 08:00 | PROVIDERS: ATTEND Podiatrist Foot & Ankle Surgery | DX: E11.621 Type 2 diabetes mellitus with foot ulcer (principal); L97.411 Non-pressure chronic ulcer of right heel and midfoot limited to breakdown of skin; E11.42 Type 2 diabetes mellitus with diabetic polyneuropathy; E11.69 Type 2 diabetes mellitus with other specified complication; M86.671 Other chronic osteomyelitis, right ankle and foot; Z79.84 Long term (current) use of oral hypoglycemic drugs; Z79.899 Other long term (current) drug therapy; R60.0 Localized edema | CPT/HCPCS: 11042; A6402 ==

== ENCOUNTER 2017-05-29 08:46 | Outpatient (CLI) | payer MEDICARE, MEDICAID | END 2017-05-29 23:59 | disposition home or self-care (01) | LOC: WOU 08:46 | PROVIDERS: ATTEND Specialist | DX: E11.621 Type 2 diabetes mellitus with foot ulcer (principal); L97.512 Non-pressure chronic ulcer of other part of right foot with fat layer exposed; E11.69 Type 2 diabetes mellitus with other specified complication; M86.671 Other chronic osteomyelitis, right ankle and foot; E11.42 Type 2 diabetes mellitus with diabetic polyneuropathy; Z79.4 Long term (current) use of insulin; I10 Essential (primary) hypertension; Z89.421 Acquired absence of other right toe(s); Z87.891 Personal history of nicotine dependence | CPT/HCPCS: A6402; G0463 ==

== ENCOUNTER 2017-06-01 09:16 | Outpatient (CLI) | payer MEDICARE, MEDICAID | END 2017-06-01 23:59 | disposition home health service (06) | LOC: WOU 09:16 | PROVIDERS: ATTEND Podiatrist Foot & Ankle Surgery | DX: E11.621 Type 2 diabetes mellitus with foot ulcer (principal); L97.512 Non-pressure chronic ulcer of other part of right foot with fat layer exposed; E11.42 Type 2 diabetes mellitus with diabetic polyneuropathy; E11.69 Type 2 diabetes mellitus with other specified complication; M86.671 Other chronic osteomyelitis, right ankle and foot; Z79.84 Long term (current) use of oral hypoglycemic drugs | CPT/HCPCS: 11042; A6402 ==

== ENCOUNTER 2017-06-08 09:10 | Outpatient (CLI) | payer MEDICARE, MEDICAID | END 2017-06-08 23:59 | disposition home health service (06) | LOC: WOU 09:10 | PROVIDERS: ATTEND Podiatrist Foot & Ankle Surgery | DX: E11.621 Type 2 diabetes mellitus with foot ulcer (principal); L97.411 Non-pressure chronic ulcer of right heel and midfoot limited to breakdown of skin; E11.42 Type 2 diabetes mellitus with diabetic polyneuropathy; R60.0 Localized edema; E11.69 Type 2 diabetes mellitus with other specified complication; M86.671 Other chronic osteomyelitis, right ankle and foot; Z79.82 Long term (current) use of aspirin | CPT/HCPCS: 11042; A6402 ==

== ENCOUNTER 2017-06-15 12:20 | Outpatient (CLI) | payer MEDICARE, MEDICAID | END 2017-06-15 23:59 | disposition home health service (06) | LOC: WOU 12:20 | PROVIDERS: ATTEND Podiatrist Foot & Ankle Surgery | DX: E11.621 Type 2 diabetes mellitus with foot ulcer (principal); L97.411 Non-pressure chronic ulcer of right heel and midfoot limited to breakdown of skin; E11.42 Type 2 diabetes mellitus with diabetic polyneuropathy; E11.69 Type 2 diabetes mellitus with other specified complication; M86.671 Other chronic osteomyelitis, right ankle and foot; Z96.29 Presence of other otological and audiological implants; Z79.84 Long term (current) use of oral hypoglycemic drugs | CPT/HCPCS: 11042; A6402 ==

== ENCOUNTER 2017-06-22 12:11 | Outpatient (CLI) | payer MEDICARE, MEDICAID | END 2017-06-22 23:59 | disposition home health service (06) | LOC: WOU 12:11 | PROVIDERS: ATTEND Podiatrist Foot & Ankle Surgery | DX: E11.621 Type 2 diabetes mellitus with foot ulcer (principal); L97.411 Non-pressure chronic ulcer of right heel and midfoot limited to breakdown of skin; L84 Corns and callosities; Z89.421 Acquired absence of other right toe(s); E11.42 Type 2 diabetes mellitus with diabetic polyneuropathy; E11.69 Type 2 diabetes mellitus with other specified complication; M86.671 Other chronic osteomyelitis, right ankle and foot; Z96.29 Presence of other otological and audiological implants; Z79.84 Long term (current) use of oral hypoglycemic drugs; Z79.82 Long term (current) use of aspirin; Z79.899 Other long term (current) drug therapy | CPT/HCPCS: 11042; A6402 ==

== ENCOUNTER 2017-06-29 12:16 | Outpatient (CLI) | payer MEDICARE, MEDICAID | END 2017-06-29 23:59 | disposition home health service (06) | LOC: WOU 12:16 | PROVIDERS: ATTEND Podiatrist Foot & Ankle Surgery | DX: E11.621 Type 2 diabetes mellitus with foot ulcer (principal); L97.411 Non-pressure chronic ulcer of right heel and midfoot limited to breakdown of skin; L97.511 Non-pressure chronic ulcer of other part of right foot limited to breakdown of skin; E11.69 Type 2 diabetes mellitus with other specified complication; M86.671 Other chronic osteomyelitis, right ankle and foot; Z79.84 Long term (current) use of oral hypoglycemic drugs; Z96.29 Presence of other otological and audiological implants; E11.42 Type 2 diabetes mellitus with diabetic polyneuropathy | CPT/HCPCS: 11042; A6402 ==

== ENCOUNTER 2017-07-06 11:59 | Outpatient (CLI) | payer MEDICARE, MEDICAID | END 2017-07-06 23:59 | disposition home health service (06) | LOC: WOU 11:59 | PROVIDERS: ATTEND Podiatrist Foot & Ankle Surgery | DX: E11.621 Type 2 diabetes mellitus with foot ulcer (principal); L97.411 Non-pressure chronic ulcer of right heel and midfoot limited to breakdown of skin; E11.69 Type 2 diabetes mellitus with other specified complication; M86.671 Other chronic osteomyelitis, right ankle and foot; Z79.84 Long term (current) use of oral hypoglycemic drugs; Z96.29 Presence of other otological and audiological implants; E11.42 Type 2 diabetes mellitus with diabetic polyneuropathy | CPT/HCPCS: 11042; A6402 ==

== ENCOUNTER 2017-07-13 09:58 | Outpatient (CLI) | payer MEDICARE, MEDICAID | END 2017-07-13 23:59 | disposition home health service (06) | LOC: WOU 09:58 | PROVIDERS: ATTEND Podiatrist Foot & Ankle Surgery | DX: E11.621 Type 2 diabetes mellitus with foot ulcer (principal); E11.65 Type 2 diabetes mellitus with hyperglycemia; L97.411 Non-pressure chronic ulcer of right heel and midfoot limited to breakdown of skin; E11.42 Type 2 diabetes mellitus with diabetic polyneuropathy; E11.69 Type 2 diabetes mellitus with other specified complication; M86.671 Other chronic osteomyelitis, right ankle and foot; Z79.84 Long term (current) use of oral hypoglycemic drugs; Z96.29 Presence of other otological and audiological implants | CPT/HCPCS: 11042; A6402 ==

== ENCOUNTER 2017-07-25 13:00 | Outpatient (CLI) | payer MEDICARE, MEDICAID | END 2017-07-25 23:59 | disposition home or self-care (01) | LOC: WOU 13:00 | PROVIDERS: ATTEND Specialist | DX: E11.69 Type 2 diabetes mellitus with other specified complication (principal); M86.671 Other chronic osteomyelitis, right ankle and foot; E11.621 Type 2 diabetes mellitus with foot ulcer; L97.512 Non-pressure chronic ulcer of other part of right foot with fat layer exposed; E11.42 Type 2 diabetes mellitus with diabetic polyneuropathy; Z96.29 Presence of other otological and audiological implants; Z87.891 Personal history of nicotine dependence; I10 Essential (primary) hypertension; Z79.82 Long term (current) use of aspirin; Z79.84 Long term (current) use of oral hypoglycemic drugs | CPT/HCPCS: A6402; G0463 ==

== ENCOUNTER 2017-07-26 08:36 | Outpatient (CLI) | payer MEDICARE, MEDICAID | END 2017-07-26 23:59 | disposition home or self-care (01) | LOC: MRI 08:36 | PROVIDERS: ATTEND Specialist | DX: M86.8X7 Other osteomyelitis, ankle and foot (principal); M19.071 Primary osteoarthritis, right ankle and foot; M25.474 Effusion, right foot; Z89.431 Acquired absence of right foot | CPT/HCPCS: 73718-TC ==

== ENCOUNTER 2017-07-27 09:20 | Outpatient (CLI) | payer MEDICARE, MEDICAID | END 2017-07-27 23:59 | disposition home health service (06) | LOC: WOU 09:20 | PROVIDERS: ATTEND Podiatrist Foot & Ankle Surgery | DX: E11.621 Type 2 diabetes mellitus with foot ulcer (principal); L97.416 Non-pressure chronic ulcer of right heel and midfoot with bone involvement without evidence of necrosis; E11.69 Type 2 diabetes mellitus with other specified complication; E11.40 Type 2 diabetes mellitus with diabetic neuropathy, unspecified; M86.671 Other chronic osteomyelitis, right ankle and foot; B96.89 Other specified bacterial agents as the cause of diseases classified elsewhere; Z79.84 Long term (current) use of oral hypoglycemic drugs; Z79.82 Long term (current) use of aspirin; Z96.29 Presence of other otological and audiological implants | CPT/HCPCS: 11042; 87070; 87075; 87077; 87186; A6402 ==

== ENCOUNTER 2017-08-01 13:36 | Outpatient (CLI) | payer MEDICARE, MEDICAID ==
[2017-08-01 15:03] LABS: BASOPHILS # (AUTO) 0.1 /CMM (0.0-0.2); BASOPHILS % (AUTO) 1.2 % (0.0-2.0); EOSINOPHILS # (AUTO) 0.1 /CMM (0.0-0.7); EOSINOPHILS % (AUTO) 2.7 % (0.0-6.0); HEMATOCRIT 32 % (39-51); HEMOGLOBIN 10.8 g/dL (13.5-17.5); LYMPHOCYTES # (AUTO) 1.6 /CMM (0.8-4.8); LYMPHOCYTES % (AUTO) 29.6 % (20.0-44.0); MEAN CORPUSCULAR HEMOGLOBIN 29 PG (26.0-33.0); MEAN CORPUSCULAR HGB CONC 33 g/dl (31.0-36.0); MEAN CORPUSCULAR VOLUME 86 fL (80-96); MONOCYTES # (AUTO) 0.4 /CMM (0.1-1.30); MONOCYTES % (AUTO) 8.1 % (2.0-12.0); NEUTROPHILS # (AUTO) 3.2 /CMM (1.8-8.9); NEUTROPHILS % (AUTO) 58.4 % (43.0-81.0); PLATELET COUNT (AUTO) 228 /CMM (150-450); RDW COEFFICIENT OF VARIATION 14.7 (11.5-15.0); RED BLOOD CELL COUNT(AUTO) 3.75 MIL/uL (4.5-6.0); WHITE BLOOD COUNT (AUTO) 5.5 K/uL (4.3-11.0)
[2017-08-01 15:26] LABS: C-REACTIVE PROTEIN < 0.2 mg/dL (0.0-0.9)
== END 2017-08-01 23:59 | disposition home or self-care (01) ==
LOC: DS 13:36
PROVIDERS: ATTEND Podiatrist Foot & Ankle Surgery
DX: S91.301A Unspecified open wound, right foot, initial encounter (principal); Z79.899 Other long term (current) drug therapy; X58.XXXA Exposure to other specified factors, initial encounter; Y93.89 Activity, other specified; Y92.89 Other specified places as the place of occurrence of the external cause; Y99.8 Other external cause status
CPT/HCPCS: 36415; 84134-TC; 85025-TC; 85652-TC; 86140-TC

== ENCOUNTER 2017-08-03 09:08 | Outpatient (CLI) | payer MEDICARE, MEDICAID | END 2017-08-03 23:59 | disposition home health service (06) | LOC: WOU 09:08 | PROVIDERS: ATTEND Podiatrist Foot & Ankle Surgery | DX: E11.621 Type 2 diabetes mellitus with foot ulcer (principal); L97.411 Non-pressure chronic ulcer of right heel and midfoot limited to breakdown of skin; E11.42 Type 2 diabetes mellitus with diabetic polyneuropathy; L90.9 Atrophic disorder of skin, unspecified; E11.69 Type 2 diabetes mellitus with other specified complication; M86.671 Other chronic osteomyelitis, right ankle and foot; Z96.29 Presence of other otological and audiological implants; Z79.4 Long term (current) use of insulin | CPT/HCPCS: 11042; A6402 ==

== ENCOUNTER 2017-08-10 09:25 | Outpatient (CLI) | payer MEDICARE, MEDICAID | END 2017-08-10 23:59 | disposition home health service (06) | LOC: WOU 09:25 | PROVIDERS: ATTEND Podiatrist Foot & Ankle Surgery | DX: E11.621 Type 2 diabetes mellitus with foot ulcer (principal); L97.411 Non-pressure chronic ulcer of right heel and midfoot limited to breakdown of skin; E11.69 Type 2 diabetes mellitus with other specified complication; M86.671 Other chronic osteomyelitis, right ankle and foot; E11.649 Type 2 diabetes mellitus with hypoglycemia without coma; E11.42 Type 2 diabetes mellitus with diabetic polyneuropathy; Z79.84 Long term (current) use of oral hypoglycemic drugs; Z79.82 Long term (current) use of aspirin | CPT/HCPCS: 11042; A6402 ==

== ENCOUNTER 2017-08-17 09:40 | Outpatient (CLI) | payer MEDICARE, MEDICAID | END 2017-08-17 23:59 | disposition home health service (06) | LOC: WOU 09:40 | PROVIDERS: ATTEND Podiatrist Foot & Ankle Surgery | DX: E11.621 Type 2 diabetes mellitus with foot ulcer (principal); L97.411 Non-pressure chronic ulcer of right heel and midfoot limited to breakdown of skin; L90.9 Atrophic disorder of skin, unspecified; M20.40 Other hammer toe(s) (acquired), unspecified foot; Z96.29 Presence of other otological and audiological implants; E11.65 Type 2 diabetes mellitus with hyperglycemia; E11.69 Type 2 diabetes mellitus with other specified complication; M86.671 Other chronic osteomyelitis, right ankle and foot; Z79.84 Long term (current) use of oral hypoglycemic drugs | CPT/HCPCS: 11042; A6402 ==

== ENCOUNTER 2017-08-24 08:40 | Outpatient (CLI) | payer MEDICARE, MEDICAID | END 2017-08-24 23:59 | disposition home health service (06) | LOC: WOU 08:40 | PROVIDERS: ATTEND Podiatrist Foot & Ankle Surgery | DX: E11.621 Type 2 diabetes mellitus with foot ulcer (principal); E11.42 Type 2 diabetes mellitus with diabetic polyneuropathy; E11.649 Type 2 diabetes mellitus with hypoglycemia without coma; E11.69 Type 2 diabetes mellitus with other specified complication; L97.411 Non-pressure chronic ulcer of right heel and midfoot limited to breakdown of skin; M86.671 Other chronic osteomyelitis, right ankle and foot; Z96.29 Presence of other otological and audiological implants; M20.41 Other hammer toe(s) (acquired), right foot; L90.9 Atrophic disorder of skin, unspecified; S93.14 Subluxation of metatarsophalangeal joint; X58.XXXA Exposure to other specified factors, initial encounter; Y92.89 Other specified places as the place of occurrence of the external cause; Z79.4 Long term (current) use of insulin; Z79.82 Long term (current) use of aspirin | CPT/HCPCS: 11042; A6402 ==

== ENCOUNTER 2017-08-31 09:10 | Outpatient (CLI) | payer MEDICARE, MEDICAID | END 2017-08-31 23:59 | disposition home health service (06) | LOC: WOU 09:10 | PROVIDERS: ATTEND Podiatrist Foot & Ankle Surgery | DX: E11.621 Type 2 diabetes mellitus with foot ulcer (principal); L97.412 Non-pressure chronic ulcer of right heel and midfoot with fat layer exposed; E11.42 Type 2 diabetes mellitus with diabetic polyneuropathy; L90.9 Atrophic disorder of skin, unspecified; E11.65 Type 2 diabetes mellitus with hyperglycemia; E11.69 Type 2 diabetes mellitus with other specified complication; M86.671 Other chronic osteomyelitis, right ankle and foot; Z96.29 Presence of other otological and audiological implants; Z79.82 Long term (current) use of aspirin; Z79.84 Long term (current) use of oral hypoglycemic drugs | CPT/HCPCS: 11042; A6402 ==

== ENCOUNTER 2017-09-04 08:06 | Outpatient (CLI) | payer MEDICARE, MEDICAID | END 2017-09-04 23:59 | disposition home health service (06) | LOC: WOU 08:06 | PROVIDERS: ATTEND Podiatrist Foot & Ankle Surgery | DX: E11.621 Type 2 diabetes mellitus with foot ulcer (principal); L97.412 Non-pressure chronic ulcer of right heel and midfoot with fat layer exposed; E11.42 Type 2 diabetes mellitus with diabetic polyneuropathy; Z89.429 Acquired absence of other toe(s), unspecified side; B35.1 Tinea unguium; L90.9 Atrophic disorder of skin, unspecified; M20.40 Other hammer toe(s) (acquired), unspecified foot; E11.69 Type 2 diabetes mellitus with other specified complication; M86.671 Other chronic osteomyelitis, right ankle and foot; Z96.29 Presence of other otological and audiological implants; E11.65 Type 2 diabetes mellitus with hyperglycemia; Z79.84 Long term (current) use of oral hypoglycemic drugs | CPT/HCPCS: 11042; A6402 ==

== ENCOUNTER 2017-09-11 09:06 | Outpatient (CLI) | payer MEDICARE, MEDICAID | END 2017-09-11 23:59 | disposition home health service (06) | LOC: WOU 09:06 | PROVIDERS: ATTEND Podiatrist Foot & Ankle Surgery | DX: E11.621 Type 2 diabetes mellitus with foot ulcer (principal); L97.512 Non-pressure chronic ulcer of other part of right foot with fat layer exposed; B35.1 Tinea unguium; L84 Corns and callosities; M20.40 Other hammer toe(s) (acquired), unspecified foot; E11.65 Type 2 diabetes mellitus with hyperglycemia; Z96.29 Presence of other otological and audiological implants; E11.69 Type 2 diabetes mellitus with other specified complication; M86.671 Other chronic osteomyelitis, right ankle and foot; Z79.84 Long term (current) use of oral hypoglycemic drugs; Z79.82 Long term (current) use of aspirin | CPT/HCPCS: 11042; A6402 ==

== ENCOUNTER 2017-09-18 09:00 | Outpatient (CLI) | payer MEDICARE, MEDICAID | END 2017-09-18 23:59 | disposition home health service (06) | LOC: WOU 09:00 | PROVIDERS: ATTEND Podiatrist Foot & Ankle Surgery | DX: E11.621 Type 2 diabetes mellitus with foot ulcer (principal); L97.512 Non-pressure chronic ulcer of other part of right foot with fat layer exposed; E11.42 Type 2 diabetes mellitus with diabetic polyneuropathy; E11.69 Type 2 diabetes mellitus with other specified complication; M86.671 Other chronic osteomyelitis, right ankle and foot; Z89.421 Acquired absence of other right toe(s); M20.41 Other hammer toe(s) (acquired), right foot; Z96.29 Presence of other otological and audiological implants; B35.1 Tinea unguium; R60.0 Localized edema; M20.5X9 Other deformities of toe(s) (acquired), unspecified foot | CPT/HCPCS: 11042; 82962-TC; A6402 ==

== ENCOUNTER 2017-09-25 09:15 | Outpatient (CLI) | payer MEDICARE, MEDICAID | END 2017-09-25 23:59 | disposition home health service (06) | LOC: WOU 09:15 | PROVIDERS: ATTEND Podiatrist Foot & Ankle Surgery | DX: E11.621 Type 2 diabetes mellitus with foot ulcer (principal); E11.42 Type 2 diabetes mellitus with diabetic polyneuropathy; L97.412 Non-pressure chronic ulcer of right heel and midfoot with fat layer exposed; Z89.421 Acquired absence of other right toe(s); M86.671 Other chronic osteomyelitis, right ankle and foot; Z96.29 Presence of other otological and audiological implants; Z79.84 Long term (current) use of oral hypoglycemic drugs; Z79.82 Long term (current) use of aspirin | CPT/HCPCS: 11042; A6402 ==

== ENCOUNTER 2017-10-02 08:35 | Outpatient (CLI) | payer MEDICARE, MEDICAID ==
[~2017-10-02 08:35] MED LIST changes: +ASPI-1169 PO; -ASPI81TA2 PO
== END 2017-10-02 23:59 | disposition home health service (06) ==
LOC: WOU 08:35
PROVIDERS: ATTEND Podiatrist Foot & Ankle Surgery
DX: E11.621 Type 2 diabetes mellitus with foot ulcer (principal); L97.412 Non-pressure chronic ulcer of right heel and midfoot with fat layer exposed; E11.42 Type 2 diabetes mellitus with diabetic polyneuropathy; M20.40 Other hammer toe(s) (acquired), unspecified foot; Z89.421 Acquired absence of other right toe(s); Z96.29 Presence of other otological and audiological implants; E11.69 Type 2 diabetes mellitus with other specified complication; M86.671 Other chronic osteomyelitis, right ankle and foot; I10 Essential (primary) hypertension; Z79.84 Long term (current) use of oral hypoglycemic drugs; Z79.899 Other long term (current) drug therapy; L90.9 Atrophic disorder of skin, unspecified
CPT/HCPCS: 11042; 82962; A6402

== ENCOUNTER 2017-10-12 08:39 | Outpatient (CLI) | payer MEDICARE, MEDICAID | END 2017-10-12 23:59 | disposition home or self-care (01) | LOC: WOU 08:39 | PROVIDERS: ATTEND Podiatrist Foot & Ankle Surgery | DX: E11.621 Type 2 diabetes mellitus with foot ulcer (principal); L97.413 Non-pressure chronic ulcer of right heel and midfoot with necrosis of muscle; Z89.421 Acquired absence of other right toe(s); E11.42 Type 2 diabetes mellitus with diabetic polyneuropathy; M79.81 Nontraumatic hematoma of soft tissue; Z79.84 Long term (current) use of oral hypoglycemic drugs | CPT/HCPCS: 10140; 82962; 87070; 87075; 87077; A6253; A6402 ×3; A6407; 11043 ==

== ENCOUNTER 2017-10-19 08:42 | Outpatient (CLI) | payer MEDICARE, MEDICAID | END 2017-10-19 23:59 | disposition home health service (06) | LOC: WOU 08:42 | PROVIDERS: ATTEND Podiatrist Foot & Ankle Surgery | DX: E11.621 Type 2 diabetes mellitus with foot ulcer (principal); L97.413 Non-pressure chronic ulcer of right heel and midfoot with necrosis of muscle; Z96.29 Presence of other otological and audiological implants; E11.42 Type 2 diabetes mellitus with diabetic polyneuropathy; L03.115 Cellulitis of right lower limb; A49.01 Methicillin susceptible Staphylococcus aureus infection, unspecified site; Z79.899 Other long term (current) drug therapy; Z79.82 Long term (current) use of aspirin; Z79.84 Long term (current) use of oral hypoglycemic drugs | CPT/HCPCS: 11043; A6402 ==

== ENCOUNTER 2017-10-26 08:57 | Outpatient (CLI) | payer MEDICARE, MEDICAID | END 2017-10-26 23:59 | disposition home health service (06) | LOC: WOU 08:57 | PROVIDERS: ATTEND Podiatrist Foot & Ankle Surgery | DX: E11.621 Type 2 diabetes mellitus with foot ulcer (principal); L97.413 Non-pressure chronic ulcer of right heel and midfoot with necrosis of muscle; E11.42 Type 2 diabetes mellitus with diabetic polyneuropathy; B35.1 Tinea unguium; B35.3 Tinea pedis; Z79.84 Long term (current) use of oral hypoglycemic drugs; Z79.82 Long term (current) use of aspirin | CPT/HCPCS: 11043; A6402 ==

== ENCOUNTER 2017-11-06 09:03 | Outpatient (CLI) | payer MEDICARE, MEDICAID | END 2017-11-06 23:59 | disposition home health service (06) | LOC: WOU 09:03 | PROVIDERS: ATTEND Podiatrist Foot & Ankle Surgery | DX: E11.621 Type 2 diabetes mellitus with foot ulcer (principal); L97.513 Non-pressure chronic ulcer of other part of right foot with necrosis of muscle; E11.42 Type 2 diabetes mellitus with diabetic polyneuropathy; B35.1 Tinea unguium; B35.3 Tinea pedis; Z96.29 Presence of other otological and audiological implants | CPT/HCPCS: 11043; 82962-TC; A6402 ==

== ENCOUNTER 2017-11-13 09:13 | Outpatient (CLI) | payer MEDICARE, MEDICAID ==
[~2017-11-13 09:13] MED LIST changes: +ONDANSETRON HCL/PF 4 MG/2 ML VIAL ONE
== END 2017-11-13 23:59 | disposition home health service (06) ==
LOC: WOU 09:13
PROVIDERS: ATTEND Podiatrist Foot & Ankle Surgery
DX: E11.621 Type 2 diabetes mellitus with foot ulcer (principal); L97.413 Non-pressure chronic ulcer of right heel and midfoot with necrosis of muscle; E11.42 Type 2 diabetes mellitus with diabetic polyneuropathy; E11.69 Type 2 diabetes mellitus with other specified complication; M86.671 Other chronic osteomyelitis, right ankle and foot; M21.171 Varus deformity, not elsewhere classified, right ankle; Z79.84 Long term (current) use of oral hypoglycemic drugs; Z79.82 Long term (current) use of aspirin; Z96.29 Presence of other otological and audiological implants; I10 Essential (primary) hypertension
CPT/HCPCS: 11043; A6402; J2405

== ENCOUNTER 2017-11-15 10:59 | Outpatient (CLI) | payer MEDICARE, MEDICAID ==
[~2017-11-15 10:59] MED LIST changes: -ONDANSETRON HCL/PF 4 MG/2 ML VIAL ONE
== END 2017-11-15 23:59 ==
LOC: WOU 10:59
PROVIDERS: ATTEND Podiatrist Foot & Ankle Surgery
DX: I73.9 Peripheral vascular disease, unspecified (principal)

== ENCOUNTER 2017-11-20 09:15 | Outpatient (CLI) | payer MEDICARE, MEDICAID | END 2017-11-20 23:59 | disposition home health service (06) | LOC: WOU 09:15 | PROVIDERS: ATTEND Podiatrist Foot & Ankle Surgery | DX: E11.621 Type 2 diabetes mellitus with foot ulcer (principal); L97.416 Non-pressure chronic ulcer of right heel and midfoot with bone involvement without evidence of necrosis; Z89.421 Acquired absence of other right toe(s); E11.42 Type 2 diabetes mellitus with diabetic polyneuropathy; E11.69 Type 2 diabetes mellitus with other specified complication; M86.671 Other chronic osteomyelitis, right ankle and foot; H54.7 Unspecified visual loss; I10 Essential (primary) hypertension; I87.2 Venous insufficiency (chronic) (peripheral); M21.171 Varus deformity, not elsewhere classified, right ankle; Z79.84 Long term (current) use of oral hypoglycemic drugs; Z79.82 Long term (current) use of aspirin; Z79.899 Other long term (current) drug therapy | CPT/HCPCS: 11043; A6402 ==

== ENCOUNTER 2017-11-23 10:45 | Outpatient (CLI) | payer MEDICARE, MEDICAID ==
[2017-11-23 11:58] LABS: BASOPHILS # (AUTO) 0.1 /CMM (0.0-0.2); BASOPHILS % (AUTO) 1.3 % (0.0-2.0); EOSINOPHILS # (AUTO) 0.1 /CMM (0.0-0.7); EOSINOPHILS % (AUTO) 2.1 % (0.0-6.0); HEMATOCRIT 31 % (39-51); HEMOGLOBIN 10.5 g/dL (13.5-17.5); LYMPHOCYTES # (AUTO) 1.8 /CMM (0.8-4.8); LYMPHOCYTES % (AUTO) 29.3 % (20.0-44.0); MEAN CORPUSCULAR HEMOGLOBIN 27 PG (26.0-33.0); MEAN CORPUSCULAR HGB CONC 34 g/dl (31.0-36.0); MEAN CORPUSCULAR VOLUME 81 fL (80-96); MONOCYTES # (AUTO) 0.4 /CMM (0.1-1.30); NEUTROPHILS # (AUTO) 3.7 /CMM (1.8-8.9); NEUTROPHILS % (AUTO) 61.3 % (43.0-81.0); PLATELET COUNT (AUTO) 292 /CMM (150-450); RDW COEFFICIENT OF VARIATION 14.2 (11.5-15.0); RED BLOOD CELL COUNT(AUTO) 3.84 MIL/uL (4.5-6.0)
[2017-11-23 12:10] LABS: CALCIUM, SERUM 8.7 mg/dL (8.5-10.1); CARBON DIOXIDE 24 mmol/L (21-32); CHLORIDE 103 mmol/L (98-107); CREATININE 1.5 mg/dL (0.6-1.3); GLUCOSE 158 mg/dL (74-106); POTASSIUM 4.2 mmol/L (3.5-5.1); SODIUM SERUM 139 mmol/L (136-145); UREA NITROGEN, BLOOD 34 mg/dL (7-18)
[2017-11-23 12:15] LABS: INR 1.04 (0.87-1.13)
== END 2017-11-23 23:59 | disposition home or self-care (01) ==
LOC: LAB 10:45
PROVIDERS: ATTEND Podiatrist Foot & Ankle Surgery
DX: Z01.818 Encounter for other preprocedural examination (principal); J98.4 Other disorders of lung; M81.0 Age-related osteoporosis without current pathological fracture; M19.071 Primary osteoarthritis, right ankle and foot; I25.10 Atherosclerotic heart disease of native coronary artery without angina pectoris; L97.519 Non-pressure chronic ulcer of other part of right foot with unspecified severity
CPT/HCPCS: 36415; 71045-TC; 73630-TC; 73650-TC; 80048-TC; 85025-TC; 85610-TC; 85730-TC

== ENCOUNTER 2017-11-27 09:10 | Outpatient (CLI) | payer MEDICARE, MEDICAID | END 2017-11-27 23:59 | disposition home health service (06) | LOC: WOU 09:10 | PROVIDERS: ATTEND Specialist | DX: E11.621 Type 2 diabetes mellitus with foot ulcer (principal); L97.415 Non-pressure chronic ulcer of right heel and midfoot with muscle involvement without evidence of necrosis; E11.42 Type 2 diabetes mellitus with diabetic polyneuropathy; E11.69 Type 2 diabetes mellitus with other specified complication; M86.671 Other chronic osteomyelitis, right ankle and foot; Z96.29 Presence of other otological and audiological implants; Z89.421 Acquired absence of other right toe(s); I10 Essential (primary) hypertension; Z79.82 Long term (current) use of aspirin; Z79.84 Long term (current) use of oral hypoglycemic drugs | CPT/HCPCS: 11042; A6402 ==

== ENCOUNTER 2017-11-27 10:33 | Outpatient (CLI) | payer MEDICARE, MEDICAID | END 2017-11-27 23:59 | disposition home or self-care (01) | LOC: RT 10:33 | PROVIDERS: ATTEND Podiatrist Foot & Ankle Surgery | DX: E11.621 Type 2 diabetes mellitus with foot ulcer (principal) ==

== ENCOUNTER → 2017-11-29 | Outpatient (CLI) | payer MEDICARE, OTHER | END | disposition home or self-care (01) | LOC: MRI 10:38 | PROVIDERS: ATTEND Specialist | DX: M86.8X7 Other osteomyelitis, ankle and foot (principal); M62.571 Muscle wasting and atrophy, not elsewhere classified, right ankle and foot | CPT/HCPCS: 73718-TC ==

== ENCOUNTER 2017-12-04 09:12 | Outpatient (CLI) | payer MEDICARE, OTHER | END 2017-12-04 23:59 | disposition home health service (06) | LOC: WOU 09:12 | PROVIDERS: ATTEND Specialist | DX: E11.621 Type 2 diabetes mellitus with foot ulcer (principal); L97.415 Non-pressure chronic ulcer of right heel and midfoot with muscle involvement without evidence of necrosis; E11.42 Type 2 diabetes mellitus with diabetic polyneuropathy; E11.69 Type 2 diabetes mellitus with other specified complication; M86.671 Other chronic osteomyelitis, right ankle and foot; Z87.891 Personal history of nicotine dependence; I10 Essential (primary) hypertension; Z89.421 Acquired absence of other right toe(s); Z96.29 Presence of other otological and audiological implants; Z79.82 Long term (current) use of aspirin; Z79.84 Long term (current) use of oral hypoglycemic drugs | CPT/HCPCS: 87070-TC; 87186-TC; A6402; G0463 ==

== ENCOUNTER 2017-12-12 08:56 | Outpatient (CLI) | payer MEDICARE, OTHER | END 2017-12-12 23:59 | disposition home health service (06) | LOC: WOU 08:56 | PROVIDERS: ATTEND Podiatrist Foot & Ankle Surgery | DX: E11.621 Type 2 diabetes mellitus with foot ulcer (principal); L97.413 Non-pressure chronic ulcer of right heel and midfoot with necrosis of muscle; E11.42 Type 2 diabetes mellitus with diabetic polyneuropathy; E11.69 Type 2 diabetes mellitus with other specified complication; M86.671 Other chronic osteomyelitis, right ankle and foot; Z79.4 Long term (current) use of insulin; Z89.421 Acquired absence of other right toe(s); M20.41 Other hammer toe(s) (acquired), right foot; H61.22 Impacted cerumen, left ear; Z01.818 Encounter for other preprocedural examination | CPT/HCPCS: 11043; 82962 ×2; A6402 ×2; G0463 ==

== ENCOUNTER 2017-12-19 09:00 | Outpatient (CLI) | payer MEDICARE, OTHER | END 2017-12-19 23:59 | disposition home health service (06) | LOC: WOU 09:00 | PROVIDERS: ATTEND Podiatrist Foot & Ankle Surgery | PROC: 3E1B78Z Irrigation of Ear using Irrigating Substance, Via Natural or Artificial Opening (ICD-10-PCS; principal; 2017-12-19) | DX: E11.621 Type 2 diabetes mellitus with foot ulcer (principal); L97.413 Non-pressure chronic ulcer of right heel and midfoot with necrosis of muscle; B35.1 Tinea unguium; Z89.429 Acquired absence of other toe(s), unspecified side; E11.42 Type 2 diabetes mellitus with diabetic polyneuropathy; H61.22 Impacted cerumen, left ear; E11.69 Type 2 diabetes mellitus with other specified complication; M86.671 Other chronic osteomyelitis, right ankle and foot; Z79.84 Long term (current) use of oral hypoglycemic drugs; Z79.82 Long term (current) use of aspirin; Z79.899 Other long term (current) drug therapy; Z96.29 Presence of other otological and audiological implants | CPT/HCPCS: 11043; 69209; 82962; A6402 ==

== ENCOUNTER 2017-12-26 08:12 | Outpatient (CLI) | payer MEDICARE, OTHER | END 2017-12-26 23:59 | disposition home health service (06) | LOC: WOU 08:12 | PROVIDERS: ATTEND Podiatrist Foot & Ankle Surgery | DX: E11.621 Type 2 diabetes mellitus with foot ulcer (principal); L97.413 Non-pressure chronic ulcer of right heel and midfoot with necrosis of muscle; Z96.29 Presence of other otological and audiological implants; E11.42 Type 2 diabetes mellitus with diabetic polyneuropathy; E11.69 Type 2 diabetes mellitus with other specified complication; M86.671 Other chronic osteomyelitis, right ankle and foot; H61.22 Impacted cerumen, left ear; Z89.421 Acquired absence of other right toe(s); I10 Essential (primary) hypertension | CPT/HCPCS: 11043; 82962-TC; A6402; G0463; Z7610 ==

== ENCOUNTER 2018-01-02 11:19 | Outpatient (CLI) | payer MEDICARE, OTHER | END 2018-01-02 23:59 | disposition home health service (06) | LOC: WOU 11:19 | PROVIDERS: ATTEND Podiatrist Foot & Ankle Surgery | DX: E11.621 Type 2 diabetes mellitus with foot ulcer (principal); L97.413 Non-pressure chronic ulcer of right heel and midfoot with necrosis of muscle; E11.42 Type 2 diabetes mellitus with diabetic polyneuropathy; E11.65 Type 2 diabetes mellitus with hyperglycemia; E11.69 Type 2 diabetes mellitus with other specified complication; M86.671 Other chronic osteomyelitis, right ankle and foot | CPT/HCPCS: 11043; A6402 ==

== ENCOUNTER 2018-01-09 10:05 | Outpatient (CLI) | payer MEDICARE, OTHER ==
[~2018-01-09 10:05] MED LIST changes: -AMLO10TA2 PO; +AMLO10TA6 PO; -BENA40TA2 PO; +BENA40TA8 PO; +METF-442 PO; -METF10002 PO
== END 2018-01-09 23:59 | disposition home health service (06) ==
LOC: WOU 10:05
PROVIDERS: ATTEND Podiatrist Foot & Ankle Surgery
DX: E11.621 Type 2 diabetes mellitus with foot ulcer (principal); L97.413 Non-pressure chronic ulcer of right heel and midfoot with necrosis of muscle; E11.65 Type 2 diabetes mellitus with hyperglycemia; Z79.4 Long term (current) use of insulin; E11.69 Type 2 diabetes mellitus with other specified complication; M86.671 Other chronic osteomyelitis, right ankle and foot; Z89.421 Acquired absence of other right toe(s); E11.42 Type 2 diabetes mellitus with diabetic polyneuropathy; Z96.29 Presence of other otological and audiological implants
CPT/HCPCS: 11043; A6402

== ENCOUNTER 2018-01-15 08:10 | Outpatient (CLI) | payer MEDICARE, OTHER | END 2018-01-15 23:59 | disposition home or self-care (01) | LOC: WOU 08:10 | PROVIDERS: ATTEND Podiatrist Foot & Ankle Surgery | DX: E11.621 Type 2 diabetes mellitus with foot ulcer (principal); L97.416 Non-pressure chronic ulcer of right heel and midfoot with bone involvement without evidence of necrosis; E11.40 Type 2 diabetes mellitus with diabetic neuropathy, unspecified; E11.65 Type 2 diabetes mellitus with hyperglycemia; E11.69 Type 2 diabetes mellitus with other specified complication; M86.671 Other chronic osteomyelitis, right ankle and foot; Z79.4 Long term (current) use of insulin | CPT/HCPCS: 11044; 82962-TC; A6402 ==

== ENCOUNTER 2018-01-18 12:22 | Outpatient (CLI) | payer MEDICARE, OTHER ==
[2018-01-18 12:49] LABS: BASOPHILS % (AUTO) 0.8 % (0.0-2.0); EOSINOPHILS % (AUTO) 2.5 % (0.0-6.0); HEMATOCRIT 32 % (39-51); HEMOGLOBIN 10.9 g/dL (13.5-17.5); LYMPHOCYTES # (AUTO) 1.9 /CMM (0.8-4.8); LYMPHOCYTES % (AUTO) 35.4 % (20.0-44.0); MEAN CORPUSCULAR HGB CONC 34 g/dl (31.0-36.0); MEAN CORPUSCULAR VOLUME 81 fL (80-96); MONOCYTES # (AUTO) 0.4 /CMM (0.1-1.30); MONOCYTES % (AUTO) 7.3 % (2.0-12.0); NEUTROPHILS # (AUTO) 2.9 /CMM (1.8-8.9); PLATELET COUNT (AUTO) 256 /CMM (150-450); RDW COEFFICIENT OF VARIATION 16.9 (11.5-15.0); RED BLOOD CELL COUNT(AUTO) 4.02 MIL/uL (4.5-6.0); WHITE BLOOD COUNT (AUTO) 5.3 K/uL (4.3-11.0)
[2018-01-18 12:51] LABS: CALCIUM, SERUM 8.9 mg/dL (8.5-10.1); CREATININE 1.5 mg/dL (0.6-1.3); GLUCOSE 188 mg/dL (74-106); UREA NITROGEN, BLOOD 36 mg/dL (7-18)
[2018-01-18 12:59] LABS: CARBON DIOXIDE 26 mmol/L (21-32); CHLORIDE 103 mmol/L (98-107); POTASSIUM 4.3 mmol/L (3.5-5.1); SODIUM SERUM 138 mmol/L (136-145)
[2018-01-18 13:17] LABS: INR 0.98 (0.87-1.13)
== END 2018-01-18 23:59 | disposition home or self-care (01) ==
LOC: LAB 12:22
PROVIDERS: ATTEND Podiatrist Foot & Ankle Surgery
DX: E11.621 Type 2 diabetes mellitus with foot ulcer (principal); M86.8X7 Other osteomyelitis, ankle and foot
CPT/HCPCS: 36415; 80048-TC; 84134-TC; 85025-TC; 85610-TC; 85730-TC

== ENCOUNTER 2018-01-22 09:28 | Outpatient (CLI) | payer MEDICARE, OTHER | END 2018-01-22 23:59 | disposition home health service (06) | LOC: WOU 09:28 | PROVIDERS: ATTEND Podiatrist Foot & Ankle Surgery | DX: E11.621 Type 2 diabetes mellitus with foot ulcer (principal); L97.416 Non-pressure chronic ulcer of right heel and midfoot with bone involvement without evidence of necrosis; Z96.29 Presence of other otological and audiological implants; E11.65 Type 2 diabetes mellitus with hyperglycemia; E11.42 Type 2 diabetes mellitus with diabetic polyneuropathy; Z79.4 Long term (current) use of insulin; E11.69 Type 2 diabetes mellitus with other specified complication; M86.671 Other chronic osteomyelitis, right ankle and foot; Z89.421 Acquired absence of other right toe(s) | CPT/HCPCS: 11044; A6402 ==

== ENCOUNTER 2018-01-29 09:25 | Outpatient (CLI) | payer MEDICARE, OTHER | END 2018-01-29 23:59 | disposition home health service (06) | LOC: WOU 09:25 | PROVIDERS: ATTEND Podiatrist Foot & Ankle Surgery | DX: E11.621 Type 2 diabetes mellitus with foot ulcer (principal); L97.416 Non-pressure chronic ulcer of right heel and midfoot with bone involvement without evidence of necrosis; E11.65 Type 2 diabetes mellitus with hyperglycemia; E11.42 Type 2 diabetes mellitus with diabetic polyneuropathy; E11.69 Type 2 diabetes mellitus with other specified complication; M86.671 Other chronic osteomyelitis, right ankle and foot; Z79.4 Long term (current) use of insulin; B35.1 Tinea unguium; Z96.29 Presence of other otological and audiological implants | CPT/HCPCS: 11044; 82962-TC; 87070-TC; 87075-TC; A6402 ==

== ENCOUNTER 2018-02-06 09:18 | Outpatient (CLI) | payer MEDICARE, OTHER | END 2018-02-06 23:59 | disposition home health service (06) | LOC: WOU 09:18 | PROVIDERS: ATTEND Specialist | DX: E11.621 Type 2 diabetes mellitus with foot ulcer (principal); L97.512 Non-pressure chronic ulcer of other part of right foot with fat layer exposed; E11.69 Type 2 diabetes mellitus with other specified complication; M86.671 Other chronic osteomyelitis, right ankle and foot; E11.42 Type 2 diabetes mellitus with diabetic polyneuropathy; E11.65 Type 2 diabetes mellitus with hyperglycemia; I10 Essential (primary) hypertension; Z96.29 Presence of other otological and audiological implants | CPT/HCPCS: 82962-TC; A6402; G0463 ==

== ENCOUNTER 2018-02-08 12:01 | Outpatient (CLI) | payer MEDICARE, OTHER | END 2018-02-08 23:59 | disposition home health service (06) | LOC: WOU 12:01 | PROVIDERS: ATTEND Podiatrist Foot & Ankle Surgery | DX: E11.621 Type 2 diabetes mellitus with foot ulcer (principal); L97.414 Non-pressure chronic ulcer of right heel and midfoot with necrosis of bone; E11.69 Type 2 diabetes mellitus with other specified complication; E11.42 Type 2 diabetes mellitus with diabetic polyneuropathy; M86.671 Other chronic osteomyelitis, right ankle and foot; Z79.84 Long term (current) use of oral hypoglycemic drugs; Z79.82 Long term (current) use of aspirin; Z79.891 Long term (current) use of opiate analgesic | CPT/HCPCS: 11044; A6402 ==

== ENCOUNTER 2018-02-15 12:04 | Outpatient (CLI) | payer MEDICARE, OTHER | END 2018-02-15 23:59 | disposition home health service (06) | LOC: WOU 12:04 | PROVIDERS: ATTEND Podiatrist Foot & Ankle Surgery | DX: E11.621 Type 2 diabetes mellitus with foot ulcer (principal); L97.414 Non-pressure chronic ulcer of right heel and midfoot with necrosis of bone; E11.69 Type 2 diabetes mellitus with other specified complication; M86.671 Other chronic osteomyelitis, right ankle and foot; E11.65 Type 2 diabetes mellitus with hyperglycemia; E11.42 Type 2 diabetes mellitus with diabetic polyneuropathy; Z96.29 Presence of other otological and audiological implants; Z79.82 Long term (current) use of aspirin; Z79.84 Long term (current) use of oral hypoglycemic drugs | CPT/HCPCS: 11044; 82962; A6402 ==

== ENCOUNTER → 2018-02-20 | Outpatient (CLI) | payer MEDICARE, OTHER | END | disposition home health service (06) | LOC: WOU 08:38 | PROVIDERS: ATTEND Podiatrist Foot & Ankle Surgery | DX: E11.621 Type 2 diabetes mellitus with foot ulcer (principal); L97.414 Non-pressure chronic ulcer of right heel and midfoot with necrosis of bone; M86.671 Other chronic osteomyelitis, right ankle and foot; E11.42 Type 2 diabetes mellitus with diabetic polyneuropathy; E11.65 Type 2 diabetes mellitus with hyperglycemia; Z79.84 Long term (current) use of oral hypoglycemic drugs; Z79.82 Long term (current) use of aspirin; Z79.891 Long term (current) use of opiate analgesic | CPT/HCPCS: 11044; A6402 ×2 ==

== ENCOUNTER 2018-02-21 08:40 | Outpatient (CLI) | payer MEDICARE, OTHER | END 2018-02-21 23:59 | disposition home or self-care (01) | LOC: MRI 08:40 | PROVIDERS: ATTEND Podiatrist Foot & Ankle Surgery | DX: M86.671 Other chronic osteomyelitis, right ankle and foot (principal); L08.89 Other specified local infections of the skin and subcutaneous tissue | CPT/HCPCS: 73718-TC ==

== ENCOUNTER 2018-02-27 08:50 | Outpatient (CLI) | payer MEDICARE, OTHER | END 2018-02-27 23:59 | disposition home health service (06) | LOC: WOU 08:50 | PROVIDERS: ATTEND Podiatrist Foot & Ankle Surgery | DX: E11.621 Type 2 diabetes mellitus with foot ulcer (principal); L97.404 Non-pressure chronic ulcer of unspecified heel and midfoot with necrosis of bone; E11.69 Type 2 diabetes mellitus with other specified complication; M86.671 Other chronic osteomyelitis, right ankle and foot; E11.42 Type 2 diabetes mellitus with diabetic polyneuropathy; E11.65 Type 2 diabetes mellitus with hyperglycemia; Z79.4 Long term (current) use of insulin; B95.2 Enterococcus as the cause of diseases classified elsewhere | CPT/HCPCS: 11044; A6402 ==

== ENCOUNTER 2018-03-06 08:29 | Outpatient (CLI) | payer MEDICARE, OTHER | END 2018-03-06 23:59 | disposition home health service (06) | LOC: WOU 08:29 | PROVIDERS: ATTEND Podiatrist Foot & Ankle Surgery | DX: E11.621 Type 2 diabetes mellitus with foot ulcer (principal); L97.414 Non-pressure chronic ulcer of right heel and midfoot with necrosis of bone; E11.65 Type 2 diabetes mellitus with hyperglycemia; E11.69 Type 2 diabetes mellitus with other specified complication; M86.671 Other chronic osteomyelitis, right ankle and foot; Z79.4 Long term (current) use of insulin; E11.42 Type 2 diabetes mellitus with diabetic polyneuropathy | CPT/HCPCS: 11044; 82962-TC; A6402 ==

== ENCOUNTER 2018-03-12 08:19 | Outpatient (CLI) | payer MEDICARE, OTHER | END 2018-03-12 23:59 | disposition home health service (06) | LOC: WOU 08:19 | PROVIDERS: ATTEND Podiatrist Foot & Ankle Surgery | DX: E11.621 Type 2 diabetes mellitus with foot ulcer (principal); E11.69 Type 2 diabetes mellitus with other specified complication; L97.414 Non-pressure chronic ulcer of right heel and midfoot with necrosis of bone; M86.671 Other chronic osteomyelitis, right ankle and foot; B95.2 Enterococcus as the cause of diseases classified elsewhere; E11.65 Type 2 diabetes mellitus with hyperglycemia; Z96.29 Presence of other otological and audiological implants; Z79.4 Long term (current) use of insulin | CPT/HCPCS: J1815 ×8; 11044; 82962-TC; 87070-TC; 87186-TC; 96372; A6253; A6402 ==

== ENCOUNTER 2018-03-19 08:48 | Outpatient (CLI) | payer MEDICARE, OTHER | END 2018-03-19 23:59 | disposition home health service (06) | LOC: WOU 08:48 | PROVIDERS: ATTEND Podiatrist Foot & Ankle Surgery | DX: E11.621 Type 2 diabetes mellitus with foot ulcer (principal); L97.414 Non-pressure chronic ulcer of right heel and midfoot with necrosis of bone; E11.42 Type 2 diabetes mellitus with diabetic polyneuropathy; R60.0 Localized edema; E11.69 Type 2 diabetes mellitus with other specified complication; M86.671 Other chronic osteomyelitis, right ankle and foot; B96.5 Pseudomonas (aeruginosa) (mallei) (pseudomallei) as the cause of diseases classified elsewhere; Z79.4 Long term (current) use of insulin; Z79.82 Long term (current) use of aspirin | CPT/HCPCS: 11044; A6402 ==

== ENCOUNTER 2018-03-26 08:39 | Outpatient (CLI) | payer MEDICARE, OTHER | END 2018-03-26 23:59 | disposition home health service (06) | LOC: WOU 08:39 | PROVIDERS: ATTEND Podiatrist Foot & Ankle Surgery | DX: E11.621 Type 2 diabetes mellitus with foot ulcer (principal); L97.414 Non-pressure chronic ulcer of right heel and midfoot with necrosis of bone; E11.42 Type 2 diabetes mellitus with diabetic polyneuropathy; E11.65 Type 2 diabetes mellitus with hyperglycemia; Z79.4 Long term (current) use of insulin; Z79.82 Long term (current) use of aspirin; E11.69 Type 2 diabetes mellitus with other specified complication; M86.671 Other chronic osteomyelitis, right ankle and foot; B95.2 Enterococcus as the cause of diseases classified elsewhere; B96.5 Pseudomonas (aeruginosa) (mallei) (pseudomallei) as the cause of diseases classified elsewhere | CPT/HCPCS: 11044; A6402 ==

== ENCOUNTER 2018-04-02 08:45 | Outpatient (CLI) | payer MEDICARE, OTHER ==
[~2018-04-02 08:45] MED LIST changes: +AMLO10TA2 PO; -AMLO10TA6 PO; +BENA40TA2 PO; -BENA40TA8 PO; -METF-442 PO; +METF10004 PO
== END 2018-04-02 23:59 | disposition home health service (06) ==
LOC: WOU 08:45
PROVIDERS: ATTEND Podiatrist Foot & Ankle Surgery
PROC: XW0 New Technology, Anatomical Regions, Introduction (ICD-10-PCS; principal; 2018-04-02)
DX: E11.621 Type 2 diabetes mellitus with foot ulcer (principal); L97.414 Non-pressure chronic ulcer of right heel and midfoot with necrosis of bone; E11.42 Type 2 diabetes mellitus with diabetic polyneuropathy; E11.65 Type 2 diabetes mellitus with hyperglycemia; Z79.4 Long term (current) use of insulin; E11.69 Type 2 diabetes mellitus with other specified complication; M86.671 Other chronic osteomyelitis, right ankle and foot; R60.0 Localized edema; Z79.82 Long term (current) use of aspirin
CPT/HCPCS: J1815 ×6; 11044; 82962-TC; 96372; A6402; Z7610

== ENCOUNTER 2018-04-03 11:11 | Outpatient (CLI) | payer MEDICARE, OTHER ==
[~2018-04-03 11:11] MED LIST changes: -AMLO10TA2 PO; +AMLO10TA6 PO; -BENA40TA2 PO; +BENA40TA8 PO; +METF-442 PO; -METF10004 PO
== END 2018-04-03 23:59 | disposition home or self-care (01) ==
LOC: LAB 11:11
PROVIDERS: ATTEND Internal Medicine
DX: Z13.89 Encounter for screening for other disorder (principal)
CPT/HCPCS: 36415; 86706; 86803

== ENCOUNTER 2018-04-09 08:43 | Outpatient (CLI) | payer MEDICARE, OTHER | END 2018-04-09 23:59 | disposition home health service (06) | LOC: WOU 08:43 | PROVIDERS: ATTEND Podiatrist Foot & Ankle Surgery | DX: E11.621 Type 2 diabetes mellitus with foot ulcer (principal); L97.414 Non-pressure chronic ulcer of right heel and midfoot with necrosis of bone; E11.42 Type 2 diabetes mellitus with diabetic polyneuropathy; E11.65 Type 2 diabetes mellitus with hyperglycemia; E11.69 Type 2 diabetes mellitus with other specified complication; M86.671 Other chronic osteomyelitis, right ankle and foot; B96.5 Pseudomonas (aeruginosa) (mallei) (pseudomallei) as the cause of diseases classified elsewhere; B95.2 Enterococcus as the cause of diseases classified elsewhere; Z79.4 Long term (current) use of insulin; Z79.82 Long term (current) use of aspirin | CPT/HCPCS: 11044; A6402; Z7610 ==

== ENCOUNTER 2018-04-23 08:44 | Outpatient (CLI) | payer MEDICARE, OTHER ==
[~2018-04-23 08:44] MED LIST changes: +AMLO10TA2 PO; -AMLO10TA6 PO; -METF-442 PO; +METF10004 PO
== END 2018-04-23 23:59 | disposition home health service (06) ==
LOC: WOU 08:44
PROVIDERS: ATTEND Podiatrist Foot & Ankle Surgery
DX: E11.621 Type 2 diabetes mellitus with foot ulcer (principal); L97.414 Non-pressure chronic ulcer of right heel and midfoot with necrosis of bone; M86.671 Other chronic osteomyelitis, right ankle and foot; B95.2 Enterococcus as the cause of diseases classified elsewhere; E11.42 Type 2 diabetes mellitus with diabetic polyneuropathy; E11.65 Type 2 diabetes mellitus with hyperglycemia; Z79.4 Long term (current) use of insulin; Z79.82 Long term (current) use of aspirin; Z79.899 Other long term (current) drug therapy
CPT/HCPCS: 11044; A6197; A6402; Z7610

== ENCOUNTER 2018-04-30 08:17 | Outpatient (CLI) | payer MEDICARE, OTHER | END 2018-04-30 23:59 | disposition home health service (06) | LOC: WOU 08:17 | PROVIDERS: ATTEND Podiatrist Foot & Ankle Surgery | DX: E11.621 Type 2 diabetes mellitus with foot ulcer (principal); L97.414 Non-pressure chronic ulcer of right heel and midfoot with necrosis of bone; M86.671 Other chronic osteomyelitis, right ankle and foot; E11.42 Type 2 diabetes mellitus with diabetic polyneuropathy; Z79.4 Long term (current) use of insulin; B95.2 Enterococcus as the cause of diseases classified elsewhere; Z79.82 Long term (current) use of aspirin; Z79.899 Other long term (current) drug therapy | CPT/HCPCS: 11044; 82962; 96372; A6402; G0463; J1815; Z7610 ==

== ENCOUNTER 2018-05-07 08:56 | Outpatient (CLI) | payer MEDICARE, OTHER | END 2018-05-07 23:59 | disposition home health service (06) | LOC: WOU 08:56 | PROVIDERS: ATTEND Podiatrist Foot & Ankle Surgery | DX: E11.621 Type 2 diabetes mellitus with foot ulcer (principal); L97.414 Non-pressure chronic ulcer of right heel and midfoot with necrosis of bone; Z79.4 Long term (current) use of insulin; E11.42 Type 2 diabetes mellitus with diabetic polyneuropathy | CPT/HCPCS: 11044; 82962-TC; A6402; G0463; Z7610 ==

== ENCOUNTER 2018-05-14 09:00 | Outpatient (CLI) | payer MEDICARE, OTHER | END 2018-05-14 23:59 | disposition home health service (06) | LOC: WOU 09:00 | PROVIDERS: ATTEND Podiatrist Foot & Ankle Surgery | DX: E11.621 Type 2 diabetes mellitus with foot ulcer (principal); L97.414 Non-pressure chronic ulcer of right heel and midfoot with necrosis of bone; E11.42 Type 2 diabetes mellitus with diabetic polyneuropathy; Z79.4 Long term (current) use of insulin; Z79.82 Long term (current) use of aspirin | CPT/HCPCS: 11042; A6402; Z7610 ==

== ENCOUNTER 2018-05-21 08:40 | Outpatient (CLI) | payer MEDICARE, OTHER | END 2018-05-21 23:59 | disposition home health service (06) | LOC: WOU 08:40 | PROVIDERS: ATTEND Podiatrist Foot & Ankle Surgery | DX: E11.621 Type 2 diabetes mellitus with foot ulcer (principal); L97.412 Non-pressure chronic ulcer of right heel and midfoot with fat layer exposed; E11.42 Type 2 diabetes mellitus with diabetic polyneuropathy; Z79.4 Long term (current) use of insulin; Z79.82 Long term (current) use of aspirin; Z79.891 Long term (current) use of opiate analgesic; Z87.39 Personal history of other diseases of the musculoskeletal system and connective tissue | CPT/HCPCS: 11042; Z7610 ==

== ENCOUNTER 2018-05-22 12:09 | Outpatient (CLI) | payer MEDICARE, OTHER ==
[2018-05-22 12:58] LABS: CALCIUM, SERUM 8.4 mg/dL (8.5-10.1); CARBON DIOXIDE 26 mmol/L (21-32); CHLORIDE 107 mmol/L (98-107); CREATININE 1.3 mg/dL (0.6-1.3); GLUCOSE 250 mg/dL (74-106); POTASSIUM 4.6 mmol/L (3.5-5.1); SODIUM SERUM 140 mmol/L (136-145); UREA NITROGEN, BLOOD 22 mg/dL (7-18)
[2018-05-22 13:47] LABS: BASOPHILS % (AUTO) 0.5 % (0.0-2.0); EOSINOPHILS % (AUTO) 4.4 % (0.0-6.0); HEMATOCRIT 33 % (39-51); HEMOGLOBIN 10.8 g/dL (13.5-17.5); LYMPHOCYTES # (AUTO) 2.1 /CMM (0.8-4.8); LYMPHOCYTES % (AUTO) 29.2 % (20.0-44.0); MEAN CORPUSCULAR HEMOGLOBIN 26 PG (26.0-33.0); MEAN CORPUSCULAR HGB CONC 32 g/dl (31.0-36.0); MEAN CORPUSCULAR VOLUME 82 fL (80-96); MONOCYTES # (AUTO) 0.5 /CMM (0.1-1.30); MONOCYTES % (AUTO) 7.1 % (2.0-12.0); NEUTROPHILS # (AUTO) 4.2 /CMM (1.8-8.9); NEUTROPHILS % (AUTO) 58.8 % (43.0-81.0); PLATELET COUNT (AUTO) 251 /CMM (150-450); RDW COEFFICIENT OF VARIATION 15.3 (11.5-15.0); RED BLOOD CELL COUNT(AUTO) 4.09 MIL/uL (4.5-6.0); WHITE BLOOD COUNT (AUTO) 7.1 K/uL (4.3-11.0)
[2018-05-22 13:53] LABS: INR 1.01 (0.87-1.13)
== END 2018-05-22 23:59 | disposition home or self-care (01) ==
LOC: LAB 12:09
PROVIDERS: ATTEND Podiatrist Foot & Ankle Surgery
DX: Z48.1 Encounter for planned postprocedural wound closure (principal); E11.621 Type 2 diabetes mellitus with foot ulcer; E11.40 Type 2 diabetes mellitus with diabetic neuropathy, unspecified; E11.8 Type 2 diabetes mellitus with unspecified complications; I70.0 Atherosclerosis of aorta; J98.11 Atelectasis
CPT/HCPCS: 36415; 71046; 80048-TC; 85025-TC; 85730-TC

== ENCOUNTER 2018-05-28 10:36 | Outpatient (CLI) | payer MEDICARE, OTHER | END 2018-05-28 23:59 | disposition home or self-care (01) | LOC: WOU 10:36 → LAB 23:59 | PROVIDERS: ATTEND Podiatrist Foot & Ankle Surgery | DX: B19.10 Unspecified viral hepatitis B without hepatic coma (principal); B19.20 Unspecified viral hepatitis C without hepatic coma; B20 Human immunodeficiency virus [HIV] disease | CPT/HCPCS: 36415; 86706 ==

== ENCOUNTER 2018-06-04 09:00 | Outpatient (CLI) | payer MEDICARE, OTHER | END 2018-06-04 23:59 | disposition home health service (06) | LOC: WOU 09:00 | PROVIDERS: ATTEND Podiatrist Foot & Ankle Surgery | DX: E11.42 Type 2 diabetes mellitus with diabetic polyneuropathy (principal); E11.69 Type 2 diabetes mellitus with other specified complication; M86.671 Other chronic osteomyelitis, right ankle and foot; Z79.4 Long term (current) use of insulin; S91.331A Puncture wound without foreign body, right foot, initial encounter; W45.0XXA Nail entering through skin, initial encounter; Y93.89 Activity, other specified; Y92.89 Other specified places as the place of occurrence of the external cause; Y99.9 Unspecified external cause status | CPT/HCPCS: 73630; 96372; A6209; A6402; G0463; J1815; Z7610 ==

== ENCOUNTER 2018-06-11 09:08 | Outpatient (CLI) | payer MEDICARE, OTHER | END 2018-06-11 23:59 | disposition home health service (06) | LOC: WOU 09:08 | PROVIDERS: ATTEND Podiatrist Foot & Ankle Surgery | DX: Z09 Encounter for follow-up examination after completed treatment for conditions other than malignant neoplasm (principal); Z86.31 Personal history of diabetic foot ulcer; E11.69 Type 2 diabetes mellitus with other specified complication; E11.42 Type 2 diabetes mellitus with diabetic polyneuropathy; M86.679 Other chronic osteomyelitis, unspecified ankle and foot; Z79.4 Long term (current) use of insulin; B35.1 Tinea unguium | CPT/HCPCS: 82962-TC; A6402; G0463; Z7610 ==